=== PATIENT | female | born 1990 ===

== ENCOUNTER → 2016-06-05 | Outpatient (CLI) | payer OTHER ==
[2016-06-05 15:19] LABS: Bilirubin, Delta 0.4 mg/dL (0.0-0.2); Total Bilirubin 0.4 mg/dL (0.2-1.3); Total Protein 6.4 g/dL (6.3-8.2)
== END | disposition home or self-care (01) ==
LOC: LABWHC1 14:46
PROVIDERS: ATTEND Obstetrics & Gynecology
DX: R74.0 Nonspecific elevation of levels of transaminase and lactic acid dehydrogenase [LDH] (principal)
CPT/HCPCS: 36415; 80076

== ENCOUNTER → 2016-06-06 | Outpatient (CLI) | payer OTHER ==
--- NOTE | 2016-06-06 11:40 | US ---
EXAMINATION TYPE: US abdomen complete DATE OF EXAM: 06/06/2016 11:08 AM COMPARISON: NONE CLINICAL HISTORY: Abnormal LFT per patient; patient denies pain; order states RUQ pain; patient is 36 weeks with EDC07/02/2016. EXAM MEASUREMENTS: Liver Length: 14.7cm Gallbladder Wall: 0.2cm CBD: 0.4cm Spleen: 9.9cm Right Kidney: 11.9 x 6.9 x 4.8cm Left Kidney: 12.0 x 5.2 x 4.8cm ANATOMY: TECHNOLOGIST IMPRESSION: Exam is technically limited with uterus Pancreas: only head is seen, otherwise, obscured by bowel gas Liver: mildly heterogeneous and fatty Gallbladder: couple of hyperechoic shadowing foci in neck with minimal mobility from neck in LLD pos ition, wall thickness is wnl Evidence for sonographic Candelaria's sign: No CBD: size is wnl Spleen: Within normal limits Right Kidney: No hydronephrosis or masses seen Left Kidney: No hydronephrosis or masses seen Upper IVC: Within normal limits Abd Aorta: upper is wnl, lower is not well seen due to IMPRESSION: Cholelithiasis. Normal Values: Liver Length: < 16cm wnl, 17-18cm upper limits, >18cm enlarged Spleen Length = < 13cm Renal Length = 9 - 12cm GB Wall: < 0.3cm CBD: < 0.6cm or < 1.0cm post cholecystectomy
== END | disposition home or self-care (01) ==
LOC: RADUSWWP 05-10 09:54
PROVIDERS: ATTEND Obstetrics & Gynecology
DX: K80.20 Calculus of gallbladder without cholecystitis without obstruction (principal)
CPT/HCPCS: 76700

== ENCOUNTER → 2016-06-11 | Outpatient (CLI) | payer OTHER ==
[2016-06-11 08:07] LABS: INR 0.9 (<1.1); Ionized Calcium 5.4 mg/dL (4.5-5.3); Partial Thromboplastin Time 23.8 sec (22.0-30.0); Prothrombin Time 9.4 sec (9.0-12.0)
[2016-06-11 08:23] LABS: Bilirubin, Delta 0.4 mg/dL (0.0-0.2); Phosphorous 4.1 mg/dL (2.5-4.5); Total Bilirubin 0.5 mg/dL (0.2-1.3); Total Protein 6.4 g/dL (6.3-8.2)
[2016-06-14 18:05] LABS: Bile Acids, Total 3.6 umol/L (< 10.1)
== END | disposition home or self-care (01) ==
LOC: LABWHC1 07:16
PROVIDERS: ATTEND Obstetrics & Gynecology Maternal & Fetal Medicine
DX: R74.0 Nonspecific elevation of levels of transaminase and lactic acid dehydrogenase [LDH] (principal); Z34.90 Encounter for supervision of normal pregnancy, unspecified, unspecified trimester
CPT/HCPCS: 36415; 80076; 82239; 82248; 82330; 82977; 84080; 84100; 85610; 85730

== ENCOUNTER 2016-06-14 05:40 | Inpatient (IN) | payer OTHER ==
[2016-06-14] MEDS ORDERED: TERBUTALINE 1 MG/ML VIAL SQ PRN (05:54)
[2016-06-14] MEDS ORDERED: CARBOPROST TROMETHAMINE 250 MCG/ML 1 ML AMP IM PRN (05:54)
[2016-06-14] MEDS ORDERED: METHYLERGONOVINE 0.2 MG/ML 1 ML AMP IM PRN (05:54)
[2016-06-14] MEDS ORDERED: LIDOCAINE 1% (PF) 10 MG/ML (30 ML SDV) SQ PRN (05:54)
[2016-06-14] MEDS ORDERED: OXYTOCIN 10 UNIT/ML 1 ML VIAL IM PRN (05:54)
[2016-06-14] MEDS ORDERED: OXYTOCIN 30 UNITS/500 ML NS 30 UNIT in SALINE 1 500ML.BAG IV SCH (05:54)
[2016-06-14 06:02] VITALS: BMI 37.8
--- NOTE | 2016-06-14 06:02 | P.HPOB ---
History of Present Illness H&P Date: 06/14/16 Chief Complaint: Induction of labor secondary to severe liver enzyme elevation This patient is a pleasant 25-year-old 2 para 1 female estimated date of confinement 07/02/2016 estimated gestational age 37-1/2 weeks who presents for delivery secondary to severe liver enzyme elevation of unknown etiology. Patient developed is approximately 4 weeks ago and has been followed by myself and maternal- medicine. Ultrasound of the liver has shown some gallstones however she has no evidence of cholelithiasis otherwise her alkaline phosphatase in the last week or 2 has been over [address] Candelaria she states that the patient is at increased risk, slightly, of stillborn. Patient I have discussed options including close surveillance versus delivery and she is requesting delivery at this time. Based on her medical condition I believe this is appropriate and indicated. care has also been complicated by gestational diabetes which has been followed by maternal medicine as well. Review of Systems Constitutional: Denies chills, Denies fever Ears, nose, mouth and throat: Denies headache, Denies sore throat Cardiovascular: Denies chest pain, Denies shortness of breath Respiratory: Denies cough Gastrointestinal: Reports heartburn Genitourinary: Reports Menstruation: Reports amenorrhea Musculoskeletal: Denies myalgias Integumentary: Denies pruritus, Denies rash Neurological: Denies numbness, Denies weakness Psychiatric: Denies anxiety, Denies depression Endocrine: Denies fatigue, Denies weight change Past Medical History Additional Past Medical History / Comment(s): Elevated liver enzymes. History of Any Multi-Drug Resistant Organisms: None Reported Past Surgical History: No Surgical Hx Reported Past Anesthesia/Blood Transfusion Reactions: No Reported Reaction Past Psychological History: No Psychological Hx Reported Smoking Status: Never smoker Past Alcohol Use History: None Reported Past Drug Use History: None Reported Medications and Allergies Home Medications Medication Instructions Recorded Confirmed Type Pnv with Ca,No.72/Iron/FA 1.25 tab PO BID 05/20/16 06/14/16 History [ Plus Tablet] glyBURIDE [Glyburide] 1 tab PO DAILY 05/20/16 06/14/16 History Allergies Allergy/AdvReac Type Severity Reaction Status Date / Time No Known Allergies Allergy Verified 06/14/16 05:53 Exam - Vital Signs Vital signs: Intake and Output 06/13/16 06/13/16 06/14/16 14:59 22:59 06:59 Other: Weight 90.718 kg Patient Weight 06/14/16 06:59 Weight 90.718 kg - OBG Physical Exam Abdomen: bowel sounds normal, no diffuse tenderness, no bruit present, no guarding noted, no hepatomegaly, no splenomegaly, no mass Vulva: both: normal Cervix: Cervix is 1 cm dilated -2 station vertex. Uterus: enlarged (Fundal height is consistent with a term .) Results Most recent ultrasound at [facility] shows baby approximately 6-1/2 pounds. Alkaline phosphatase on Saturday was greater than 1000. She also has mild elevation of her transaminase. Assessment and Plan (1) Elevated liver function tests Narrative/Plan: This is a pleasant 25-year-old 2 para 1 female 30 7/2 weeks gestation with significant liver enzyme elevations in increased risk of IUFD. Patient is at term and presents for induction of labor at this time. Status: Acute (2) Gestational diabetes mellitus Status: Acute
[2016-06-14] MEDS: LACTATED RINGERS 1,000 ML IV SCH ×4 (06:04→21:36)
[2016-06-14 06:10] LABS: Basophils # (A) 0.1 k/uL (0-0.2); Basophils % (A) 1 %; CH 26.3; CHCM 32.6; Eosinophils # (A) 0.1 k/uL (0-0.7); Eosinophils % (A) 1 %; HCT 38.3 % (34.0-46.0); HDW 2.75; HGB 12.3 gm/dL (11.4-16.0); Luc # (Auto) 0.21; Luc % (Auto) 3; Lymphocytes # (A) 2.3 k/uL (1.0-4.8); Lymphocytes % (A) 28 %; MCH 26.2 pg (25.0-35.0); MCHC 32.2 g/dL (31.0-37.0); MCV 81.2 fL (80.0-100.0); Mean Platelet Volume 7.5; Monocytes # (A) 0.4 k/uL (0-1.0); Monocytes % (A) 5 %; Neutrophils # (A) 5.3 k/uL (1.3-7.7); Neutrophils % (A) 63 %; RBC 4.72 m/uL (3.80-5.40); RDW 13.8 % (11.5-15.5); WBC 8.3 k/uL (3.8-10.6); WBC (Perox) 8.73
[2016-06-14 06:23] LABS: Bilirubin, Delta 0.3 mg/dL (0.0-0.2); Total Bilirubin 0.4 mg/dL (0.2-1.3); Total Protein 6.2 g/dL (6.3-8.2)
[2016-06-14 06:24] LABS: Glucose,Whole Blood 83 mg/dL (75-99)
[2016-06-14 07:37] LABS: Glucose,Whole Blood 70 mg/dL (75-99)
[2016-06-14 08:34] LABS: Glucose,Whole Blood 72 mg/dL (75-99)
[2016-06-14 09:35] LABS: Glucose,Whole Blood 71 mg/dL (75-99)
[2016-06-14 10:23] LABS: Glucose,Whole Blood 77 mg/dL (75-99)
[2016-06-14] MEDS ORDERED: SODIUM CHLORIDE 0.9% 100 ML BAG ONE ×2 (10:40→19:55)
[2016-06-14] MEDS ORDERED: BUPIVACAINE (PF) 0.25% 30 ML VIAL ONE ×2 (10:40→19:55)
[2016-06-14] MEDS ORDERED: fentaNYL (PF) 50 MCG/ML 5 ML AMP ONE ×2 (10:40→19:55)
[2016-06-14 11:35] LABS: Glucose,Whole Blood 71 mg/dL (75-99)
[2016-06-14 12:27] LABS: Glucose,Whole Blood 67 mg/dL (75-99)
[2016-06-14 12:27] LABS: Glucose,Whole Blood 65 mg/dL (75-99)
[2016-06-14 12:31] LABS: Hemoglobin A1C 5.6 % (4.2-6.1)
[2016-06-14 13:45] LABS: Glucose,Whole Blood 65 mg/dL (75-99)
[2016-06-14 14:42] LABS: Glucose,Whole Blood 63 mg/dL (75-99)
[2016-06-14 15:34] LABS: Glucose,Whole Blood 60 mg/dL (75-99)
[2016-06-14 16:29] LABS: Glucose,Whole Blood 62 mg/dL (75-99)
[2016-06-14 17:34] LABS: Glucose,Whole Blood 68 mg/dL (75-99)
[2016-06-14 18:31] LABS: Glucose,Whole Blood 68 mg/dL (75-99)
[2016-06-14] MEDS ORDERED: AMPICILLIN 2,000 MG in SODIUM CHLORIDE 0.9% 100 ML IVPB STA (18:51)
[2016-06-14] MEDS ORDERED: CITRIC ACID-SODIUM CITRATE 15 ML CUP PO ONE (19:44)
[2016-06-14] MEDS ORDERED: ceFAZolin 2 GM in SODIUM CHLORIDE 0.9% 100 ML IVPB ONE (19:44)
[2016-06-14] MEDS ORDERED: OXYTOCIN 10 UNIT/ML 1 ML VIAL IM ONE (19:55)
[2016-06-14] MEDS ORDERED: HYDROmorphone (PF) 1 MG/ML ONE (19:55)
[2016-06-14] MEDS ORDERED: KETOROLAC 30 MG/ML 1 ML VIAL ONE (19:55)
[2016-06-14] MEDS ORDERED: ONDANSETRON 4 MG/2 ML VIAL ONE (19:55)
[2016-06-14] MEDS ORDERED: PHENYLEPHRINE-0.9% NACL SYG 1 MG/10 ML SYRINGE ONE (19:55)
[2016-06-14] MEDS ORDERED: SIMETHICONE 80 MG CHEWABLE PO PRN (20:49)
[2016-06-14] MEDS ORDERED: ZOLPIDEM 5 MG TAB PO PRN (20:49)
[2016-06-14] MEDS ORDERED: diphenhydrAMINE 25 MG CAP PO PRN (20:49)
[2016-06-14] MEDS ORDERED: METOCLOPRAMIDE 5 MG/ML 2 ML VIAL IVP PRN (20:49)
[2016-06-14] MEDS ORDERED: diphenhydrAMINE 50 MG/ML 1 ML VIAL IVP PRN (20:49)
[2016-06-14] MEDS ORDERED: NALOXONE 0.4 MG/ML 1 ML VIAL IV PRN (20:57)
[2016-06-14] MEDS ORDERED: HYDROmorphone PCA 5 MG/25 ML SYRINGE IV PRN (20:57)
--- NOTE | 2016-06-14 21:05 | P.OP ---
Date of Procedure: 06/14/16 Preoperative Diagnosis: #1: 37-3/7 week intrauterine . #2: Gestational diabetes. #3: Severe elevated liver enzymes. #4: Failure to progress in labor Postoperative Diagnosis: Same Procedure(s) Performed: Primary low transverse section Anesthesia: epidural Surgeon: Eduard Hahn Manager [employer] #1: Paty Love Estimated Blood Loss (ml): 800 Pathology: other (Placenta) Condition: stable Disposition: floor Indications for Procedure: Please see dictated H&P for intimate details of this patient's admission. Brief summary this is a pleasant 25-year-old 2 para 1 female 37-3/7 weeks gestation who is admitted for induction of labor secondary to liver enzyme abnormalities. Patient is admitted she is 1-2 cm dilated and has artificial rupture membranes for clear fluid. Patient's labor progresses until she gets to about 8 cm dilated and the cervix falls up and the head does not come down past -1 station. We began have some maternal tachycardia and low- grade temperature at this time and recommended proceed with section for delivery. Patient does understand the surgery and risks including risks of infection, bleeding, possible injury to bowel, bladder, vessels, and other organs. Patient understands risk of DVT and pulmonary embolism. All the patient's questions are answered and a written consent is obtained. Operative Findings: This is a vigorous viable female infant Apgars were 9 and 9 delivery time is 2016 hrs. Infant has spontaneous respirations and good cry and grossly appears normal. Description of Procedure: This patient has a Rosas catheter placed to straight drain. She is subsequently taken to the operating room where her epidural is dosed up for sufficient level of surgery. With an adequate level of anesthesia she has abdominal prep and drape. Scalpels and taken Pfannenstiel skin incision is then made. A second scalpel is taken down the fascia the fascia scored with a knife. Fascial incision extended bilaterally using the Haq scissors. Fascia is dissected off the rectus muscles the rectus muscles are and identified the peritoneum was identified and entered sharply. The peritoneal incision extended superior and inferior without difficulty. Bladder blade is then placed. Bladder peritoneum was taken off the lower uterine segment sharply. Scalpels and taken low transverse uterine incision is then made. Using a hemostat into the uterine cavity bluntly. There is loss of clear fluid. This incision extended bluntly. 's head is then guided through the incision with fundal pressure. is found to be in the hospital posterior presentation. Transverse to the right. With this done we then bulb suction the baby's mouth and naris is no evidence of nuchal cord. Then delivery anterior posterior shoulder and rest this 's body. This is a vigorous viable female infant Apgars are 9 and 9 delivery time is 2016 hrs. After delivery of the the umbilical cord is doubly clamped and cut it appears to be trivascular. Placenta is then manually extracted intact. Uterus is then externalized. Uterine incision is then closed using 0 Vicryl running locked fashion 2 layers. Excellent hemostasis is noted. The bladder peritoneum was then closed using a 3-0 Vicryl in the usual fashion. Again good hemostasis is noted. With this done excess fluid is removed from the pelvis. Uterus placed back into the abdomen. Final inspection shows all be hemostatic. Peritoneum was identified and closed using 0 Vicryl running fashion. Rectus muscles reapproximated in 0 Vicryl interrupted fashion. Fascia is then closed using 0 PDS. Fascial incision is intact and hemostatic. Subcutaneous tissues and closed using a 3-0 Vicryl in the usual fashion. Good hemostasis is noted. Skin is and closed using lili and a sterile dressing is then applied. All counts are correct 3. There is no complications. and mother are stable in delivery room.
[2016-06-15] MEDS: ceFAZolin 2 GM in SODIUM CHLORIDE 0.9% 100 ML IVPB SCH ×2 (00:17→08:31)
[2016-06-15] MEDS: OXYTOCIN 30 UNITS/500 ML NS 30 UNIT in SALINE 1 500ML.BAG IV SCH ×5 (00:18→19:51)
[2016-06-15] MEDS: KETOROLAC 30 MG/ML 1 ML VIAL IVP PRN ×2 (06:01→13:42)
[2016-06-15] MEDS ORDERED: Acetaminophen-Codeine 300-30mg TAB PO PRN (06:10)
[2016-06-15] MEDS ORDERED: IBUPROFEN 200 MG TAB PO PRN (06:12)
[2016-06-15] MEDS ORDERED: DIPH,PERTUS(ACELL)TETVAC-LF 0.5 ML VIAL IM ONE (06:13)
[2016-06-15] MEDS ORDERED: MEASLES-MUMPS-RUBELLA VACC/PF 12,500 UNIT/0.5 ML VIAL SQ ONE (06:13)
[2016-06-15] MEDS ORDERED: INFLUENZA VACCINE (3YR+) 60 MCG/0.5 ML SYRINGE IM ONE (06:14)
--- NOTE | 2016-06-15 06:28 | P.PNOBGPC ---
Subjective - Subjective Patient reports: Reports appetite normal, Reports voiding normally, Reports pain well controlled, Reports ambulating normally : doing well Objective - Vital Signs Latest vital signs: Vital Signs Temp Pulse Resp BP Pulse Ox 06/15/16 00:00 98.2 F 86 16 109/66 06/14/16 22:47 98.6 F 100 16 100/58 06/14/16 22:17 93 15 109/55 98 06/14/16 22:10 98 06/14/16 21:47 100 18 112/60 95 06/14/16 21:32 111 H 17 114/57 99 06/14/16 21:17 103 H 17 110/58 94 L 06/14/16 21:02 94 18 113/57 98 06/14/16 20:52 97.9 F 103 H 18 95 Intake and Output 06/14/16 06/14/16 06/15/16 14:59 22:59 06:59 Intake Total 1100 500 Balance 1100 500 Intake: IV 1100 Ampicillin 2,000 mg In 100 Sodium Chloride 0.9% 100 ml @ 100 mls/hr IVPB ONCE STA Rx#:[id number] Lactated Ringers 1,000 ml 1000 @ 125 mls/hr IV .Q8H [facility] Rx#:[id number] Oral 500 Other: Voiding Method Indwelling Catheter Indwelling Catheter - Exam Lungs: bilateral: normal Chest: Normal S1, Normal S2 Extremities: Present: normal Abdomen: Present: normal appearance, soft. Absent: distention, tenderness Incision: Present: normal, dry, intact Uterus: Present: normal, firm - Labs Labs: Abnormal Lab Results - Last 24 Hours (Table) 06/14/16 06/14/16 06/14/16 Range/Units 06:02 07:35 08:33 POC Glucose (mg/dL) 70 L 72 L (75-99) mg/dL Delta Bilirubin 0.3 H (0.0-0.2) mg/dL ALT 53 H (9-52) U/L Alkaline Phosphatase 1106 H (38-126) U/L Total Protein 6.2 L (6.3-8.2) g/dL Albumin 3.2 L (3.5-5.0) g/dL 06/14/16 06/14/16 06/14/16 Range/Units 09:33 11:34 12:22 POC Glucose (mg/dL) 71 L 71 L 65 L (75-99) mg/dL Delta Bilirubin (0.0-0.2) mg/dL ALT (9-52) U/L Alkaline Phosphatase (38-126) U/L Total Protein (6.3-8.2) g/dL Albumin (3.5-5.0) g/dL 06/14/16 06/14/16 06/14/16 Range/Units 12:25 13:43 14:29 POC Glucose (mg/dL) 67 L 65 L 63 L (75-99) mg/dL Delta Bilirubin (0.0-0.2) mg/dL ALT (9-52) U/L Alkaline Phosphatase (38-126) U/L Total Protein (6.3-8.2) g/dL Albumin (3.5-5.0) g/dL 06/14/16 06/14/16 06/14/16 Range/Units 15:32 16:27 17:33 POC Glucose (mg/dL) 60 L 62 L 68 L (75-99) mg/dL Delta Bilirubin (0.0-0.2) mg/dL ALT (9-52) U/L Alkaline Phosphatase (38-126) U/L Total Protein (6.3-8.2) g/dL Albumin (3.5-5.0) g/dL 06/14/16 Range/Units 18:30 POC Glucose (mg/dL) 68 L (75-99) mg/dL Delta Bilirubin (0.0-0.2) mg/dL ALT (9-52) U/L Alkaline Phosphatase (38-126) U/L Total Protein (6.3-8.2) g/dL Albumin (3.5-5.0) g/dL Assessment and Plan (1) Elevated liver function tests Current Visit: Yes Status: Acute Code(s): R79.89 - OTHER SPECIFIED ABNORMAL FINDINGS OF BLOOD CHEMISTRY SNOMED Code(s): 205357327 (2) Gestational diabetes mellitus Current Visit: Yes Status: Acute Code(s): O24.419 - GESTATIONAL DIABETES MELLITUS IN , UNSP CONTROL SNOMED Code(s): 47022308 (3) delivery delivered Narrative/Plan: This is postoperative day #1. Patient is resting without complaints. Vital signs are stable and she is afebrile. Incision is intact and dry. She is having excellent urine output and tolerating liquid diet. 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 Dr. Davis we will see this patient for me in the next few days and we anticipate discharge home tomorrow or Saturday. Current Visit: Yes Status: Acute Code(s): O82 - ENCOUNTER FOR DELIVERY WITHOUT INDICATION SNOMED Code(s): 501277456
[2016-06-15] MEDS: LACTATED RINGERS 1,000 ML IV SCH ×2 (07:13→09:56)
[2016-06-15 08:04] LABS: Basophils # (A) 0.1 k/uL (0-0.2); Basophils % (A) 0 %; CH 26.7; CHCM 33.1; Eosinophils % (A) 0 %; HCT 31.6 % (34.0-46.0); HDW 2.72; HGB 10.2 gm/dL (11.4-16.0); Luc # (Auto) 0.21; Luc % (Auto) 1; Lymphocytes # (A) 2.1 k/uL (1.0-4.8); Lymphocytes % (A) 14 %; MCHC 32.2 g/dL (31.0-37.0); MCV 80.9 fL (80.0-100.0); Mean Platelet Volume 8.6; Monocytes # (A) 0.8 k/uL (0-1.0); Monocytes % (A) 5 %; Neutrophils # (A) 12.3 k/uL (1.3-7.7); Neutrophils % (A) 79 %; RBC 3.91 m/uL (3.80-5.40); RDW 14.1 % (11.5-15.5); WBC 15.5 k/uL (3.8-10.6)
[2016-06-15 08:17] LABS: Bilirubin, Delta 0.4 mg/dL (0.0-0.2); Total Bilirubin 0.7 mg/dL (0.2-1.3); Total Protein 5.2 g/dL (6.3-8.2)
[2016-06-15] MEDS: SENNOSIDES-DOCUSATE SODIUM 1 EACH TAB PO SCH ×2 (16:24→19:30)
[2016-06-15] MEDS: Acetaminophen-Codeine 300-30mg TAB PO PRN (19:30)
[2016-06-15] MEDS: IBUPROFEN 600 MG TAB PO PRN (23:12)
[2016-06-16] MEDS: Acetaminophen-Codeine 300-30mg TAB PO PRN ×2 (02:55→13:28)
--- NOTE | 2016-06-16 05:00 | P.DS ---
Providers Date of admission: 06/14/16 05:40 Expected date of discharge: 06/16/16 Attending physician: Eduard Hahn Primary care physician: Stated None - Discharge Diagnosis(es) (1) delivery delivered Current Visit: Yes Status: Acute Hospital Course: Patient underwent a primary low transverse for failure to progress. She also had severely elevated liver enzymes and gestational diabetes. Her course was uncomplicated. Dr. Hahn scar see the patient in a week and recheck her liver enzymes. She denies nausea, vomiting, chest percussion was of breath or calf pain. Her incision is clean, dry, intact. Pain is well-controlled with Tylenol 3 and Motrin. Plan - Discharge Summary New Discharge Prescriptions: Acetaminophen-Codeine 300-30mg [Tylenol w/codeine #3] 1 - 2 each PO Q4HR PRN # 30 tab PRN Reason: Pain Ibuprofen [Motrin] 600 mg PO QID PRN #40 tab PRN Reason: Pain Discharge Medication List Pnv with Ca,No.72/Iron/FA [ Plus Tablet] 1.25 tab PO BID 05/20/16 [ History] Acetaminophen-Codeine 300-30mg [Tylenol w/codeine #3] 1 - 2 each PO Q4HR PRN # 30 tab 06/15/16 [Rx] Ibuprofen [Motrin] 600 mg PO QID PRN #40 tab 06/15/16 [Rx] Follow up Appointment(s)/Referral(s): Eduard Hahn MD [STAFF PHYSICIAN] - 1 Week (Please see me also on July 31 at 10:15 AM for a visit.) Patient Instructions/Handouts: (DC) Activity/Diet/Wound Care/Special Instructions: No heavy lifting or strenuous activities for 6 weeks. Please call if any fever , chills, excessive vaginal bleeding, and/or abdominal pain. No intercourse for 6 weeks. Discharge Disposition: HOME SELF-CARE
[2016-06-16] MEDS: SENNOSIDES-DOCUSATE SODIUM 1 EACH TAB PO SCH (08:49)
[2016-06-16] MEDS: IBUPROFEN 600 MG TAB PO PRN (08:50)
[2016-06-16 09:24] VITALS: BP 134/82; PULSE 112; RESP 18; TEMP 98.7
== END 2016-06-16 13:30 | disposition home or self-care (01) | DRG 765 ==
LOC: 4FBP 05:40
PROVIDERS: ADMIT Obstetrics & Gynecology; ATTEND Obstetrics & Gynecology
PROC: 10907ZC Drainage of Amniotic Fluid, Therapeutic from Products of Conception, Via Natural or Artificial Opening (ICD-10-PCS; principal; 2016-06-14 20:00)
PROC: 10D00Z1 Extraction of Products of Conception, Low, Open Approach (ICD-10-PCS; principal; 2016-06-14 20:00)
DX: O26.62 Liver and biliary tract disorders in childbirth (principal); O75.2 Pyrexia during labor, not elsewhere classified; O24.429 Gestational diabetes mellitus in childbirth, unspecified control; K80.20 Calculus of gallbladder without cholecystitis without obstruction; O62.2 Other uterine inertia; Z3A.37 37 weeks gestation of pregnancy; R00.0 Tachycardia, unspecified; O32.4XX0 Maternal care for high head at term, not applicable or unspecified; Z37.0 Single live birth
CPT/HCPCS: 36415; 80076; 82239; 82248; 82330; 82977; 83036; 84080; 84100; 85025; 85610; 85730; 88307; 90471; 90472; 90686; 90707; 90715

== ENCOUNTER → 2016-06-25 | Outpatient (CLI) | payer OTHER ==
[2016-06-25 11:01] LABS: Bilirubin, Delta 0.4 mg/dL (0.0-0.2); Total Bilirubin 0.4 mg/dL (0.2-1.3); Total Protein 7.1 g/dL (6.3-8.2)
== END | disposition home or self-care (01) ==
LOC: LABWHC1 09:53
PROVIDERS: ATTEND Obstetrics & Gynecology
DX: K75.9 Inflammatory liver disease, unspecified (principal)
CPT/HCPCS: 36415; 80076

== ENCOUNTER 2016-07-29 17:34 | Emergency (ER) | payer BC, OTHER ==
[2016-07-29 17:42] VITALS: BP 136/78; PULSE 83; RESP 17; TEMP 97.6
[2016-07-29] MEDS ORDERED: SODIUM CHLORIDE 0.9% 500 ML IV STA (17:57)
[2016-07-29 18:43] LABS: Basophils % (A) 0 %; CH 25.9; CHCM 31.7; Eosinophils # (A) 0.1 k/uL (0-0.7); Eosinophils % (A) 1 %; HCT 37.6 % (34.0-46.0); HDW 2.26; HGB 11.8 gm/dL (11.4-16.0); Luc # (Auto) 0.17; Luc % (Auto) 2; Lymphocytes # (A) 1.5 k/uL (1.0-4.8); Lymphocytes % (A) 18 %; MCH 25.8 pg (25.0-35.0); MCHC 31.5 g/dL (31.0-37.0); MCV 81.8 fL (80.0-100.0); Mean Platelet Volume 6.7; Monocytes # (A) 0.4 k/uL (0-1.0); Monocytes % (A) 5 %; Neutrophils # (A) 6.1 k/uL (1.3-7.7); Neutrophils % (A) 74 %; RBC 4.59 m/uL (3.80-5.40); RDW 15.2 % (11.5-15.5); WBC 8.3 k/uL (3.8-10.6); WBC (Perox) 8.72
[2016-07-29 18:56] LABS: Amorphous Sediment,Urine Occasional /hpf; Appearance,Urine Cloudy (Clear); Bacteria,Urine Many /hpf; Bilirubin,Urine 1+ (Negative); Glucose,Urine (UA) Negative (Negative); Ketones,Urine Negative (Negative); Leukocyte Esterase,Urine Moderate (Negative); Mucus,Urine Occasional /hpf; Nitrite,Urine Negative (Negative); Protein,Urine Trace (Negative); RBC,Urine <1 /hpf (0-5); Specific Gravity,Urine 1.021 (1.001-1.035); Squamous Epithelial Cell,Urine 1 /hpf (0-4); UA Billing (MACRO vs. MICRO) MICRO; WBC,Urine 21 /hpf (0-5)
[2016-07-29 18:58] LABS: ALT 344 U/L (9-52); AST 614 U/L (14-36); Alkaline Phosphatase 158 U/L (38-126); Amylase 59 U/L (30-110); Anion Gap 10 mmol/L; Blood Urea Nitrogen 11 mg/dL (7-17); Calcium 9.8 mg/dL (8.4-10.2); Carbon Dioxide 26 mmol/L (22-30); Chloride 106 mmol/L (98-107); Glucose 92 mg/dL (74-99); Non-African American GFR(MDRD) >60 (>60 ml/min/1.73 sqM); Potassium 4.3 mmol/L (3.5-5.1); Sodium 142 mmol/L (137-145); Total Protein 7.8 g/dL (6.3-8.2)
--- NOTE | 2016-07-29 19:26 | XR ---
EXAMINATION TYPE: XR thoracic spine 2V DATE OF EXAM: 07/29/2016 7:14 PM CLINICAL HISTORY: pain TECHNIQUE: Frontal, lateral, and swimmer's view of thoracic spine are obtained. COMPARISON: None. FINDINGS: Thoracic spine show satisfactory alignment without evidence of acute fracture or dislocatio n. Vertebral body heights are preserved. Disc spaces are well preserved. Visualized ribs are unrem arkable. IMPRESSION: No acute fracture or dislocation is seen in the thoracic spine. ICD 10 NO FRACTURE, INIT IAL EVALUATION
--- NOTE | 2016-07-29 19:27 | XR ---
EXAMINATION TYPE: XR chest 1V DATE OF EXAM: 07/29/2016 7:14 PM COMPARISON: NONE HISTORY: Chest pain TECHNIQUE: Single frontal view of the chest is obtained. FINDINGS: There is no focal air space opacity, pleural effusion, or pneumothorax seen. The cardiac silhouette size is within normal limits. The osseous structures are intact. IMPRESSION: 1. No acute process.
[2016-07-29] MEDS ORDERED: ONDANSETRON 4 MG/2 ML VIAL IVP STA (19:49)
[2016-07-29] MEDS ORDERED: HYDROmorphone 1 MG/ML 1 ML SYRINGE IVP STA (19:49)
--- NOTE | 2016-07-29 19:51 | ED ---
General Adult HPI - General Source: patient, RN notes reviewed Mode of arrival: ambulatory Limitations: no limitations <Dejuan Chung - Last Filed: 07/29/16 19:49> <Saul Lambert - Last Filed: 07/29/16 20:47> - General Chief complaint: Back Pain/Injury Stated complaint: back pain Time Seen by Provider: 07/29/16 17:43 - History of Present Illness Initial comments: 26-year-old female presents emergency Department chief complaint of back pain, abdominal pain. Patient states she's been having mid upper back pain, shoulder pain over the last month states is getting worse last few days. Patient states she also started having reported abdominal pain. Patient states that she states nausea vomiting or diarrhea. She states her back is worse with movement which she denies any trauma. Patient denies any shortness of breath, cough or cold like symptoms. Patient did state that she had a baby approximately one month ago. Patient states that during her her liver functions were elevated though they stated it was just benign hepatitis and her liver functions are actually better after delivering her child. Patient denies any dysuria hematuria. Denies any chance emergency. (Dejuan Chung) - Related Data Previous Rx's Medication Instructions Recorded Ibuprofen [Motrin] 600 mg PO QID PRN #40 tab 06/15/16 Ondansetron Odt [Zofran Odt] 4 mg PO Q12HR PRN #10 tab 07/29/16 Allergies Allergy/AdvReac Type Severity Reaction Status Date / Time No Known Allergies Allergy Verified 07/29/16 18:05 Review of Systems ROS Other: All systems not noted in ROS Statement are negative. <Dejuan Chung - Last Filed: 07/29/16 19:49> ROS Other: All systems not noted in ROS Statement are negative. <Saul Lambert - Last Filed: 07/29/16 20:47> ROS Statement: Those systems with pertinent positive or pertinent negative responses have been documented in the HPI. Past Medical History Past Medical History: No Reported History Additional Past Medical History / Comment(s): Elevated liver enzymes. History of Any Multi-Drug Resistant Organisms: None Reported Past Surgical History: No Surgical Hx Reported Additional Past Surgical History / Comment(s): [place] tooth extraction Past Anesthesia/Blood Transfusion Reactions: No Reported Reaction Past Psychological History: No Psychological Hx Reported Smoking Status: Never smoker Past Alcohol Use History: None Reported Past Drug Use History: None Reported - Past Family History Mother Family Medical History: Cancer, Diabetes Mellitus <Dejuan Chung - Last Filed: 07/29/16 19:49> General Exam Limitations: no limitations General appearance: alert, in no apparent distress Head exam: Present: atraumatic, normocephalic, normal inspection Respiratory exam: Present: normal lung sounds bilaterally. Absent: respiratory distress, wheezes, rales, rhonchi, stridor Cardiovascular Exam: Present: regular rate, normal rhythm, normal heart sounds. Absent: systolic murmur, diastolic murmur, rubs, gallop, clicks GI/Abdominal exam: Present: soft, tenderness (Moderate right upper quadrant tenderness), normal bowel sounds. Absent: distended, guarding, rebound, rigid Back exam: Present: tenderness (Mild tenderness in thoracic area). Absent: CVA tenderness (R), CVA tenderness (L), paraspinal tenderness, vertebral tenderness Neurological exam: Present: alert Skin exam: Present: warm, dry, intact, normal color. Absent: rash <Dejuan Chung - Last Filed: 07/29/16 19:49> Medical Decision Making - Lab Data Result diagrams: 07/29/16 18:25 07/29/16 18:25 <Dejuan Chung - Last Filed: 07/29/16 19:49> - Lab Data Result diagrams: 07/29/16 18:25 07/29/16 18:25 <Saul Lambert - Last Filed: 07/29/16 20:47> - Medical Decision Making Patient was signed out to me for follow-up with the ultrasound. I reviewed the patient's vital signs, laboratory studies, previous imaging. Discussed the patient's symptoms. Patient states that she developed severe right upper quadrant abdominal pain that wraps around to her back after eating a fatty/ fried meal yesterday. She has a known history of elevated alk phos which is been evaluated in the past with an unremarkable workup. Her history is consistent with a biliary colic. Reviewed ultrasound findings which were consistent with uncomplicated cholelithiasis. Had a discussion with the patient that she may have had a temporary blocked gallstone which passed through the common bile duct which would cause elevated liver enzymes and her elevated alk phos. She denies any alcohol use. No history of hepatitis. She denies any spotty vision, severe headaches or any changes in urination to suggest HELPP syndrome. Trace protein in urine. WBC in urine but denies any urinary symptoms. Recommended that the patient follow-up with a surgeon for evaluation. We'll discharge the patient home with Zofran. We'll have a bland diet until her symptoms resolve. Strongly suggested that she avoid any fatty foods, greasy foods, acidic foods. Discussed signs and symptoms on when to return to the emergency department for further evaluation. Patient voiced understanding and is comfortable with discharge home. (Saul Lambert) - Lab Data Lab Results 07/29/16 07/29/16 07/29/16 Range/Units 18:25 18:25 18:25 WBC 8.3 (3.8-10.6) k/uL RBC 4.59 (3.80-5.40) m/uL Hgb 11.8 (11.4-16.0) gm/dL Hct 37.6 (34.0-46.0) % MCV 81.8 (80.0-100.0) fL MCH 25.8 (25.0-35.0) pg MCHC 31.5 (31.0-37.0) g/dL RDW 15.2 (11.5-15.5) % Plt Count 414 (150-450) k/uL Neutrophils % 74 % Lymphocytes % 18 % Monocytes % 5 % Eosinophils % 1 % Basophils % 0 % Neutrophils # 6.1 (1.3-7.7) k/uL Lymphocytes # 1.5 (1.0-4.8) k/uL Monocytes # 0.4 (0-1.0) k/uL Eosinophils # 0.1 (0-0.7) k/uL Basophils # 0.0 (0-0.2) k/uL Sodium 142 (137-145) mmol/L Potassium 4.3 (3.5-5.1) mmol/L Chloride 106 (98-107) mmol/L Carbon Dioxide 26 (22-30) mmol/L Anion Gap 10 mmol/L BUN 11 (7-17) mg/dL Creatinine 0.71 (0.52-1.04) mg/dL Est GFR (MDRD) Af Amer >60 (>60 ml/min/1.73 sqM) Est GFR (MDRD) Non-Af >60 (>60 ml/min/1.73 sqM) Glucose 92 (74-99) mg/dL Calcium 9.8 (8.4-10.2) mg/dL Total Bilirubin 1.0 (0.2-1.3) mg/dL AST 614 H (14-36) U/L ALT 344 H (9-52) U/L Alkaline Phosphatase 158 H (38-126) U/L Total Protein 7.8 (6.3-8.2) g/dL Albumin 4.1 (3.5-5.0) g/dL Amylase 59 (30-110) U/L Lipase 298 (23-300) U/L Urine Color Urine Appearance (Clear) Urine pH (5.0-8.0) Ur Specific [place] (1.001-1.035) Urine Protein (Negative) Urine Glucose (UA) (Negative) Urine Ketones (Negative) Urine Blood (Negative) Urine Nitrate (Negative) Urine Bilirubin (Negative) Urine Urobilinogen (<2.0) mg/dL Ur Leukocyte Esterase (Negative) Urine RBC (0-5) /hpf Urine WBC (0-5) /hpf Ur Squamous Epith Cells (0-4) /hpf Amorphous Sediment (None) /hpf Urine Bacteria (None) /hpf Urine Mucus (None) /hpf Urine HCG, Qual Not Detected (Not Detectd) 07/29/16 Range/Units 18:25 WBC (3.8-10.6) k/uL RBC (3.80-5.40) m/uL Hgb (11.4-16.0) gm/dL Hct (34.0-46.0) % MCV (80.0-100.0) fL MCH (25.0-35.0) pg MCHC (31.0-37.0) g/dL RDW (11.5-15.5) % Plt Count (150-450) k/uL Neutrophils % % Lymphocytes % % Monocytes % % Eosinophils % % Basophils % % Neutrophils # (1.3-7.7) k/uL Lymphocytes # (1.0-4.8) k/uL Monocytes # (0-1.0) k/uL Eosinophils # (0-0.7) k/uL Basophils # (0-0.2) k/uL Sodium (137-145) mmol/L Potassium (3.5-5.1) mmol/L Chloride (98-107) mmol/L Carbon Dioxide (22-30) mmol/L Anion Gap mmol/L BUN (7-17) mg/dL Creatinine (0.52-1.04) mg/dL Est GFR (MDRD) Af Amer (>60 ml/min/1.73 sqM) Est GFR (MDRD) Non-Af (>60 ml/min/1.73 sqM) Glucose (74-99) mg/dL Calcium (8.4-10.2) mg/dL Total Bilirubin (0.2-1.3) mg/dL AST (14-36) U/L ALT (9-52) U/L Alkaline Phosphatase (38-126) U/L Total Protein (6.3-8.2) g/dL Albumin (3.5-5.0) g/dL Amylase (30-110) U/L Lipase (23-300) U/L Urine Color Yellow Urine Appearance Cloudy H (Clear) Urine pH 6.0 (5.0-8.0) Ur Specific [place] 1.021 (1.001-1.035) Urine Protein Trace H (Negative) Urine Glucose (UA) Negative (Negative) Urine Ketones Negative (Negative) Urine Blood Small H (Negative) Urine Nitrate Negative (Negative) Urine Bilirubin 1+ H (Negative) Urine Urobilinogen 12.0 (<2.0) mg/dL Ur Leukocyte Esterase Moderate H (Negative) Urine RBC <1 (0-5) /hpf Urine WBC 21 H (0-5) /hpf Ur Squamous Epith Cells 1 (0-4) /hpf Amorphous Sediment Occasional H (None) /hpf Urine Bacteria Many H (None) /hpf Urine Mucus Occasional H (None) /hpf Urine HCG, Qual (Not Detectd) Disposition <Dejuan Chung - Last Filed: 07/29/16 19:49> <Saul Lambert - Last Filed: 07/29/16 20:47> Clinical Impression: Cholelithiasis, Transaminitis, Elevated alkaline phosphatase level, Abdominal pain Disposition: HOME SELF-CARE Condition: Good Instructions: Gallstones (ED), Abdominal Pain (ED) Prescriptions: Ondansetron Odt [Zofran Odt] 4 mg PO Q12HR PRN #10 tab PRN Reason: Nausea And Vomiting Referrals: Mariia Cruz MD [Primary Care Provider] - 1-2 days Kev Rodriguez MD [Medical Doctor] - 1-2 days
--- NOTE | 2016-07-29 20:34 | US ---
EXAMINATION TYPE: US abdomen limited DATE OF EXAM: 07/29/2016 8:15 PM COMPARISON: on PACS CLINICAL HISTORY: Pain. RUQ pain, NPO EXAM MEASUREMENTS: Liver Length: 16.8 cm Gallbladder Wall: 0.2 cm CBD: 0.6 cm CHD: 0.4 cm Right Kidney: 10.3 x 6.0 x 4.2 cm Findings: Pancreas: tail not well seen due to overlying bowel gas. Main pancreatic duct= 1.7 mm Liver: wnl Gallbladder: mobile echogenic foci with shadowing Evidence for sonographic Candelaria's sign: neg CBD: wnl CHD: wnl Right Kidney: wnl IMPRESSION: Uncomplicated cholelithiasis.
== END 2016-07-29 21:18 | disposition home or self-care (01) ==
LOC: EC 17:34
DX: K80.20 Calculus of gallbladder without cholecystitis without obstruction (principal); R74.0 Nonspecific elevation of levels of transaminase and lactic acid dehydrogenase [LDH]; R74.8 Abnormal levels of other serum enzymes; Z79.899 Other long term (current) drug therapy
CPT/HCPCS: 36415; 80053; 82150; 83690; 85025; 81001; 81025; 72070; 71010; 76705; 99284; 96374; 96375; 96361; J2405; J1170

== ENCOUNTER 2016-07-31 19:22 | Inpatient (IN) | payer BC, OTHER ==
[2016-07-31] MEDS ORDERED: ONDANSETRON 4 MG/2 ML VIAL IVP STA (20:00)
[2016-07-31] MEDS ORDERED: ACETAMINOPHEN IV (For NPO) 1,000 MG in EMPTY BAG 1 BAG IVPB ONE (20:00)
[2016-07-31] MEDS ORDERED: SODIUM CHLORIDE 0.9% 1,000 ML IV STA (20:00)
[2016-07-31] MEDS ORDERED: HYDROmorphone 1 MG/ML 1 ML SYRINGE IVP STA (20:13)
--- NOTE | 2016-07-31 20:13 | ED ---
Abdominal Pain HPI - General Chief Complaint: Abdominal Pain Stated Complaint: Abd/Side/Back Pain Time Seen by Provider: 07/31/16 19:58 Source: patient, RN notes reviewed Mode of arrival: ambulatory Limitations: no limitations - History of Present Illness Initial Comments: 26-year-old female presents to the emergency Department chief complaint of right upper quadrant abdominal pain. Patient states that she was seen here a few days ago she was told that she had a gallbladder attack. Patient states she went home she started to have nausea vomiting started at increasing pain. Patient states now has pain when she takes a deep breath. Patient states that she hasn't had any cough cold runny nose with this. Patient does admit to a history of gallstones in the past. Patient states is her liver enzymes are also increased. Patient states that she just keeps getting worse reevaluated. Patient states that she is not currently having any other symptoms at this time. Patient states there is radiation to the back.Patient denies any recent shortness of breath, chest pain, back pain, numbness or tingling, dysuria or hematuria, constipation or diarrhea, headaches or visual changes, or any other current symptoms. - Related Data Home Medications Medication Instructions Recorded Confirmed Acetaminophen-Codeine 300-30mg 2 tab PO Q6H PRN 07/31/16 07/31/16 [Tylenol #3] Allergies Allergy/AdvReac Type Severity Reaction Status Date / Time No Known Allergies Allergy Verified 07/31/16 20:10 Review of Systems ROS Statement: Those systems with pertinent positive or pertinent negative responses have been documented in the HPI. ROS Other: All systems not noted in ROS Statement are negative. Past Medical History Past Medical History: No Reported History Additional Past Medical History / Comment(s): Elevated liver enzymes, chol History of Any Multi-Drug Resistant Organisms: None Reported Past Surgical History: No Surgical Hx Reported Additional Past Surgical History / Comment(s): [place] tooth extraction Past Anesthesia/Blood Transfusion Reactions: No Reported Reaction Past Psychological History: No Psychological Hx Reported Smoking Status: Never smoker Past Alcohol Use History: None Reported Past Drug Use History: None Reported - Past Family History Mother Family Medical History: Cancer, Diabetes Mellitus General Exam - General Exam Comments Initial Comments: General: The patient is awake and alert, in no distress, and does not appear acutely ill, jaundice. Eye: Pupils are equal, round and reactive to light, extra-ocular movements are intact; there is normal conjunctiva bilaterally. No signs of icterus. Ears, nose, mouth and throat: There are moist mucous membranes. Neck: The neck is supple, there is no tenderness. Cardiovascular: There is a regular rate and rhythm. No murmur, rub or gallop is appreciated. Respiratory: Lungs are clear to auscultation, respirations are non-labored, breath sounds are equal. No wheezes, stridor, rales, or rhonchi. Gastrointestinal: Soft, non-distended, or percussion tenderness of the abdomen without masses or organomegaly noted. There is no rebound or guarding present. No CVA tenderness. Bowel sounds are unremarkable. Back: There is no tenderness to palpation in the midline. There is no obvious deformity. No rashes noted. Musculoskeletal: Normal ROM, no tenderness, There is no pedal edema. There is no calf tenderness or swelling. Sensation intact. Pulses equal bilaterally 2+. Neurological: CN II-XII intact, There are no obvious motor or sensory deficits. Coordination appears grossly intact. Speech is normal. Skin: Skin is warm and dry and no rashes or lesions are noted. Psychiatric: Cooperative, appropriate mood & affect, normal judgment. Limitations: no limitations Course Vital Signs 07/31/16 07/31/16 07/31/16 19:39 22:16 22:31 Temperature 100.3 F H Pulse Rate 130 H 89 Respiratory 18 18 16 Rate Blood Pressure 131/96 131/75 O2 Sat by Pulse 98 96 Oximetry Medical Decision Making - Medical Decision Making 26-year-old female presents emergency Department chief complaint abdominal pain. This time patient does appear to have acute pancreatitis as well as elevated liver enzymes and an elevated bilirubin which is new from previous labs on 07/29. At this time the suspicion is that the Silvana lithiasis has caused pancreatitis as well as elevated bilirubin. At this time admitting provider who is Dr. Crespo was contacted regarding the case we will admit patient will continue pain medication and fluids. We will also consult surgery regarding the case and Dr. Carr was contacted as well regarding the case. - Lab Data Result diagrams: 07/31/16 20:55 07/31/16 20:55 Lab Results 07/31/16 07/31/16 07/31/16 Range/Units 20:55 20:55 20:55 WBC 8.9 (3.8-10.6) k/uL RBC 4.69 (3.80-5.40) m/uL Hgb 12.2 (11.4-16.0) gm/dL Hct 38.2 (34.0-46.0) % MCV 81.5 (80.0-100.0) fL MCH 26.1 (25.0-35.0) pg MCHC 32.1 (31.0-37.0) g/dL RDW 15.4 (11.5-15.5) % Plt Count 459 H (150-450) k/uL Neutrophils % 82 % Lymphocytes % 13 % Monocytes % 4 % Eosinophils % 0 % Basophils % 0 % Neutrophils # 7.3 (1.3-7.7) k/uL Lymphocytes # 1.1 (1.0-4.8) k/uL Monocytes # 0.4 (0-1.0) k/uL Eosinophils # 0.0 (0-0.7) k/uL Basophils # 0.0 (0-0.2) k/uL PT (9.0-12.0) sec INR (<1.1) APTT (22.0-30.0) sec Sodium 144 (137-145) mmol/L Potassium 3.8 (3.5-5.1) mmol/L Chloride 108 H (98-107) mmol/L Carbon Dioxide 23 (22-30) mmol/L Anion Gap 13 mmol/L BUN 7 (7-17) mg/dL Creatinine 0.70 (0.52-1.04) mg/dL Est GFR (MDRD) Af Amer >60 (>60 ml/min/1.73 sqM) Est GFR (MDRD) Non-Af >60 (>60 ml/min/1.73 sqM) Glucose 119 H (74-99) mg/dL Plasma Lactic Acid David (0.7-2.0) mmol/L Calcium 9.7 (8.4-10.2) mg/dL Total Bilirubin 3.8 H (0.2-1.3) mg/dL AST 576 H (14-36) U/L ALT 991 H (9-52) U/L Alkaline Phosphatase 323 H (38-126) U/L Total Protein 7.7 (6.3-8.2) g/dL Albumin 4.2 (3.5-5.0) g/dL Amylase 2072 H* (30-110) U/L Lipase >48428 H (23-300) U/L Blood Type A Positive Blood Type Recheck No Antibody Screen NEGATIVE Spec Expiration Date 08/03/2016 - 235407/31/16 07/31/16 Range/Units 20:55 20:55 WBC (3.8-10.6) k/uL RBC (3.80-5.40) m/uL Hgb (11.4-16.0) gm/dL Hct (34.0-46.0) % MCV (80.0-100.0) fL MCH (25.0-35.0) pg MCHC (31.0-37.0) g/dL RDW (11.5-15.5) % Plt Count (150-450) k/uL Neutrophils % % Lymphocytes % % Monocytes % % Eosinophils % % Basophils % % Neutrophils # (1.3-7.7) k/uL Lymphocytes # (1.0-4.8) k/uL Monocytes # (0-1.0) k/uL Eosinophils # (0-0.7) k/uL Basophils # (0-0.2) k/uL PT 10.3 (9.0-12.0) sec INR 1.0 (<1.1) APTT 23.5 (22.0-30.0) sec Sodium (137-145) mmol/L Potassium (3.5-5.1) mmol/L Chloride (98-107) mmol/L Carbon Dioxide (22-30) mmol/L Anion Gap mmol/L BUN (7-17) mg/dL Creatinine (0.52-1.04) mg/dL Est GFR (MDRD) Af Amer (>60 ml/min/1.73 sqM) Est GFR (MDRD) Non-Af (>60 ml/min/1.73 sqM) Glucose (74-99) mg/dL Plasma Lactic Acid David 0.8 (0.7-2.0) mmol/L Calcium (8.4-10.2) mg/dL Total Bilirubin (0.2-1.3) mg/dL AST (14-36) U/L ALT (9-52) U/L Alkaline Phosphatase (38-126) U/L Total Protein (6.3-8.2) g/dL Albumin (3.5-5.0) g/dL Amylase (30-110) U/L Lipase (23-300) U/L Blood Type Blood Type Recheck Antibody Screen Spec Expiration Date - Radiology Data Radiology results: report reviewed, image reviewed Disposition Clinical Impression: Cholelithiasis, Elevated liver function tests, Elevated alkaline phosphatase level, Elevated liver enzymes, Acute pancreatitis, Elevated bilirubin Disposition: ADMITTED IP TO THIS [facility] Condition: Stable Time of Disposition: 23:23 Decision Date: 07/31/16 Decision Time: 23:23
[2016-07-31 21:29] LABS: Basophils % (A) 0 %; CH 25.9; CHCM 31.9; Eosinophils % (A) 0 %; HCT 38.2 % (34.0-46.0); HDW 2.28; HGB 12.2 gm/dL (11.4-16.0); Luc # (Auto) 0.08; Luc % (Auto) 1; Lymphocytes # (A) 1.1 k/uL (1.0-4.8); Lymphocytes % (A) 13 %; MCH 26.1 pg (25.0-35.0); MCHC 32.1 g/dL (31.0-37.0); MCV 81.5 fL (80.0-100.0); Mean Platelet Volume 6.6; Monocytes # (A) 0.4 k/uL (0-1.0); Monocytes % (A) 4 %; Neutrophils # (A) 7.3 k/uL (1.3-7.7); Neutrophils % (A) 82 %; RBC 4.69 m/uL (3.80-5.40); RDW 15.4 % (11.5-15.5); WBC 8.9 k/uL (3.8-10.6); WBC (Perox) 8.79
[2016-07-31 21:36] LABS: ALT 991 U/L (9-52); AST 576 U/L (14-36); Alkaline Phosphatase 323 U/L (38-126); Anion Gap 13 mmol/L; Blood Urea Nitrogen 7 mg/dL (7-17); Calcium 9.7 mg/dL (8.4-10.2); Carbon Dioxide 23 mmol/L (22-30); Chloride 108 mmol/L (98-107); Glucose 119 mg/dL (74-99); Non-African American GFR(MDRD) >60 (>60 ml/min/1.73 sqM); Potassium 3.8 mmol/L (3.5-5.1); Sodium 144 mmol/L (137-145); Total Bilirubin 3.8 mg/dL (0.2-1.3); Total Protein 7.7 g/dL (6.3-8.2)
--- NOTE | 2016-07-31 21:36 | XR ---
EXAMINATION TYPE: XR abdomen 2V DATE OF EXAM: 07/31/2016 9:11 PM COMPARISON: NONE HISTORY: Right upper quadrant pain TECHNIQUE: 2 views FINDINGS: Bowel gas pattern is normal. There is no sign of intestinal obstruction or pneumoperitoneum . Fecal pattern is normal. Lung bases are clear. There are no pathologic calcifications over the kidn eys. IMPRESSION: Nonacute abdomen.
[2016-07-31 21:38] LABS: Partial Thromboplastin Time 23.5 sec (22.0-30.0); Prothrombin Time 10.3 sec (9.0-12.0)
[2016-07-31 21:52] LABS: Amylase 2072 U/L (30-110)
[2016-07-31] MEDS ORDERED: HYDROmorphone 1 MG/ML 1 ML SYRINGE IV PRN (22:20)
[2016-07-31] MEDS ORDERED: ONDANSETRON 4 MG/2 ML VIAL IVP PRN (22:20)
[2016-07-31] MEDS ORDERED: NALOXONE 0.4 MG/ML 1 ML VIAL IV PRN (22:20)
[2016-07-31] MEDS ORDERED: PIPERACILLIN-TAZOBACTAM 3.375 GM in DEXTROSE/WATER 1 50ML.BAG IVPB STA (22:24)
--- NOTE | 2016-07-31 23:28 | US ---
EXAM: US Abdomen Complete. CLINICAL HISTORY: Reason: Pain TECHNIQUE: Real-time ultrasound of the abdomen (complete) with image documentation. COMPARISON: None. FINDINGS: Liver: Liver measures 16.7 cm in length. No focal mass detected. Gallbladder: Multiple gallstones. Normal gallbladder wall thickness of 2 mm. no pericholecystic fluid. Common bile duct: Common duct is dilated, measuring 10 mm in diameter. Pancreas: Mild dilatation of the main pancreatic duct in the body. Limited visualization of the pancreas due to overlying bowel gas. Right Kidney: Right kidney measures 10 cm in length. No hydronephrosis. IMPRESSION: 1. Cholelithiasis without evidence of cholecystitis. 2. Dilated common duct (10 mm). Correlate with labs for biliary obstruction, and consider MRCP for further evaluation. 3. Mild dilation of the main pancreatic duct in the body. This also could be evaluated by MRCP if indicated.
[2016-07-31] MEDS: SODIUM CHLORIDE 0.9% 1,000 ML IV SCH (23:34)
[2016-08-01] MEDS: ONDANSETRON 4 MG/2 ML VIAL IVP PRN (01:04)
[2016-08-01] MEDS: HYDROmorphone 1 MG/ML 1 ML SYRINGE IV PRN ×4 (01:37→09:38)
[2016-08-01 02:05] VITALS: BMI 39.2
[2016-08-01 07:24] LABS: Basophils % (A) 0 %; CH 25.6; Eosinophils # (A) 0.1 k/uL (0-0.7); Eosinophils % (A) 1 %; HCT 34.3 % (34.0-46.0); HDW 2.22; HGB 10.8 gm/dL (11.4-16.0); Hypochromasia Slight; Luc # (Auto) 0.11; Luc % (Auto) 2; Lymphocytes # (A) 1.5 k/uL (1.0-4.8); Lymphocytes % (A) 24 %; MCH 26.2 pg (25.0-35.0); MCHC 31.6 g/dL (31.0-37.0); MCV 82.9 fL (80.0-100.0); Mean Platelet Volume 6.5; Monocytes # (A) 0.4 k/uL (0-1.0); Monocytes % (A) 6 %; Neutrophils # (A) 4.4 k/uL (1.3-7.7); Neutrophils % (A) 68 %; RBC 4.13 m/uL (3.80-5.40); RDW 15.5 % (11.5-15.5); WBC 6.4 k/uL (3.8-10.6); WBC (Perox) 6.66
[2016-08-01 07:44] LABS: ALT 733 U/L (9-52); AST 302 U/L (14-36); Alkaline Phosphatase 265 U/L (38-126); Anion Gap 12 mmol/L; Blood Urea Nitrogen 7 mg/dL (7-17); Calcium 8.8 mg/dL (8.4-10.2); Carbon Dioxide 22 mmol/L (22-30); Chloride 110 mmol/L (98-107); Glucose 87 mg/dL (74-99); Non-African American GFR(MDRD) >60 (>60 ml/min/1.73 sqM); Potassium 3.8 mmol/L (3.5-5.1); Sodium 144 mmol/L (137-145); Total Bilirubin 2.6 mg/dL (0.2-1.3); Total Protein 6.6 g/dL (6.3-8.2)
[2016-08-01 08:11] LABS: Amylase 986 U/L (30-110)
[2016-08-01] MEDS: PIPERACILLIN-TAZOBACTAM 3.375 GM in DEXTROSE/WATER 1 50ML.BAG IVPB SCH ×3 (09:07→23:49)
[2016-08-01] MEDS: PANTOPRAZOLE 40 MG/10 ML VIAL IV SCH (09:07)
[2016-08-01] MEDS: SODIUM CHLORIDE 0.9% 1,000 ML IV SCH (09:35)
--- NOTE | 2016-08-01 09:44 | P.CONS ---
History of Present Illness - Reason for Consult Consult date: 08/01/16 Pancreatitis Requesting physician: Kamille Crespo - History of Present Illness 26-year-old female presents with acute abdominal pain, jaundice, and elevated liver enzymes. Patient is been experiencing mid back pain for the last month. She was evaluated in the emergency room regarding this symptom Saturday and discharged stating that she was "having a gallbladder attack". At that time her liver enzymes were elevated; AST 614. ALT 344. Alkaline phosphates 158. Total bilirubin 1.0. Lipase 298. She returned within 48 hours with increased midepigastric pain nausea vomiting changes in the color of her urine and persistent back pain. Admission total bilirubin 3.8. AST 576. ALT 991. Alkaline phosphatase 323. Amylase 2072. Lipase greater than 20,000. White count 8.9. Hemoglobin 12.2. INR 1.0. No history of hepatitis or EtOH abuse. No changes in medications. Denies fever, chills, acholic stools. T-max 100.3. Ultrasound abdomen reported cholelithiasis with dilated common bile duct 10 mm. Currently amylase 986. Lipase and 6306. Total bilirubin 2.6. AST 302. ALT 733. Alkaline phosphates 265. 07/29/2016 hCG not detected. Review of Systems Constitutional: Denies fever, chills, sweats, weight gain, or loss. Obese. HEENT: Negative for migraines, blurred vision or loss, earaches, drainage, tinnitus, oral mucosal lesions, dysphagia, or odynophagia. CARDIAC: Negative for chest pain, arrhythmias, or palpitation. RESPIRATORY: Negative for shortness of breath, hemoptysis, cough, or sputum production. GI: See HPI for pertinent findings. : Negative for hematuria, urgency, frequency, polyuria, or dysuria. GYNc: Denies possibility of . Negative vaginal discharge. MUSCULOSKELETAL: Negative for muscle aches, swelling, arthritis, and arthralgias. NEUROLOGIC: Negative for stroke or TIA. ENDOCRINE: Negative for thyroid problems. SKIN: Negative for rash or itching. PSYCHIATRIC: Negative history for depression and anxiety Past Medical History Past Medical History: No Reported History Additional Past Medical History / Comment(s): Elevated liver enzymes, chol History of Any Multi-Drug Resistant Organisms: None Reported Past Surgical History: Section Additional Past Surgical History / Comment(s): [place] tooth extraction, c- section on 06/14/16, had gestastional diabetes during Past Anesthesia/Blood Transfusion Reactions: No Reported Reaction Past Psychological History: No Psychological Hx Reported Smoking Status: Never smoker Past Alcohol Use History: None Reported Past Drug Use History: None Reported - Past Family History Mother Family Medical History: Cancer, Diabetes Mellitus Medications and Allergies Home Medications Medication Instructions Recorded Confirmed Type Acetaminophen-Codeine 300-30mg 2 tab PO Q6H PRN 07/31/16 07/31/16 History [Tylenol #3] Allergies Allergy/AdvReac Type Severity Reaction Status Date / Time No Known Allergies Allergy Verified 07/31/16 20:10 Physical Exam Vitals: Vital Signs Temp Pulse Resp BP Pulse Ox 08/01/16 06:24 98.8 F 78 18 106/58 96 Intake and Output 07/31/16 08/01/16 08/01/16 22:59 06:59 14:59 Output Total 600 Balance -600 Output: Urine 600 Other: Voiding Method Toilet Weight 94.347 kg General appearance: The patient is alert, oriented, in no acute distress. Jaundice. HET: Head is normocephalic and atraumatic. Pupils are equal and reactive. Scleral icterus. Oropharynx is clear without lesions. Neck: Supple without lymphadenopathy. Trachea midline. Heart: S1 S2. Regular rate and rhythm. Lungs: No crackles or wheezes are heard. Abdomen: Soft, midepigastric tenderness, obese, nondistended with bowel sounds. No peritoneal signs. No palpable organomegaly or masses. Extremities: Normal skin color and turgor. No cyanosis, rash, ulceration, clubbing, or edema. Radial and pedal pulses are 2/4 bilaterally. Neurological: No focal deficits. Strength and sensation are grossly intact. Results CBC & Chem 7: 08/01/16 06:34 08/01/16 06:34 Labs: Abnormal Lab Results - Last 24 Hours (Table) 08/01/16 08/01/16 Range/Units 06:34 06:34 Hgb 10.8 L (11.4-16.0) gm/dL Chloride 110 H (98-107) mmol/L Total Bilirubin 2.6 H (0.2-1.3) mg/dL AST 302 H (14-36) U/L ALT 733 H (9-52) U/L Alkaline Phosphatase 265 H (38-126) U/L Albumin 3.4 L (3.5-5.0) g/dL Amylase 986 H* (30-110) U/L Lipase 6306 H (23-300) U/L US - abdomen: report reviewed (Review by Dr. Oneal) Assessment and Plan (1) Obstructive jaundice Status: Acute (2) Acute gallstone pancreatitis Status: Acute (3) Obesity (BMI 35.0-39.9 without comorbidity) Status: Chronic Plan: 1. Nothing by mouth except ice chips medications popsicles. 2. Repeat chemistries in a.m. IV hydration. Supportive measures. 3. ERCP discussed and tentative based on clinical course. 4. IV antibiotics. Thank you for this kind referral and the opportunity to participate in the care of your patient. This consultation was discussed with Dr. Oneal. The impression and plan of care have been directed as dictated.
[2016-08-01 11:40] LABS: Hepatitis B Surface Ag Index 0.07
[2016-08-01 11:45] LABS: Hepatitis B Core IgM Index 0.05
[2016-08-01 11:57] LABS: Hepatitis C Virus IgG Index 0.03
[2016-08-01 12:00] LABS: Hepatitis C Virus IgG Ab Negative (Negative)
--- NOTE | 2016-08-01 13:39 | P.GSCN ---
History of Present Illness Consult date: 08/01/16 Reason for Consult: Cholelithiasis Requesting physician: Sheree Donis History of present illness: Patient is a 26-year-old female, patient of Dr. Cruz in the outpatient setting, with medical history significant for cholelithiasis and elevated liver enzymes, presenting to the emergency department with complaints of right upper quadrant pain radiating to her back associated with fevers, nausea and vomiting with evidence of cholelithiasis without evidence of cholecystitis and acute gallstone pancreatitis as evidence by ultrasound of abdomen. Patient states she was diagnosed with gallstones in May when she was associated with elevated liver enzymes. Patient reports back pain since Saturday that progressed to right upper quadrant and epigastric pain. Patient was evaluated in the emergency department on Saturday and discharged home with the impression of a "gallbladder attack." Patient presented with increased abdominal pain on Saturday with abdominal ultrasound positive for cholelithiasis without evidence of cholecystitis, dilated common duct of 10 m suspect secondary to biliary obstruction, and mild dilation of main pancreatic duct. Patient reports dark urine. No history of diarrhea constipation. T-max the last 24 hours 100.3. No evidence of leukocytosis. On admission total bilirubin 3.8, AST 576, ALT 991 , alkaline phosphatase 323, amylase 2072, lipase greater than 20,000. Labs this morning: Total bilirubin decreased to 2.6, AST 302, ALT 733, alkaline phosphatase 265, amylase 9086, lipase 6306. Hepatitis panel negative. Patient has been evaluated by gastrointestinal service with possibility of ERCP pending clinical course. Patient is currently on IV antibiotics in form of Zosyn. Past Medical History Past Medical History: No Reported History Additional Past Medical History / Comment(s): Elevated liver enzymes, chol History of Any Multi-Drug Resistant Organisms: None Reported Past Surgical History: Section Additional Past Surgical History / Comment(s): [place] tooth extraction, c- section on 06/14/16, had gestastional diabetes during Past Anesthesia/Blood Transfusion Reactions: No Reported Reaction Past Psychological History: No Psychological Hx Reported Smoking Status: Never smoker Past Alcohol Use History: None Reported Past Drug Use History: None Reported - Past Family History Mother Family Medical History: Cancer, Diabetes Mellitus Medications and Allergies Home Medications Medication Instructions Recorded Confirmed Type Acetaminophen-Codeine 300-30mg 2 tab PO Q6H PRN 07/31/16 07/31/16 History [Tylenol #3] Allergies Allergy/AdvReac Type Severity Reaction Status Date / Time No Known Allergies Allergy Verified 07/31/16 20:10 Surgical - Exam Vital Signs Temp Pulse Resp BP Pulse Ox 100.3 F H 130 H 18 131/96 98 07/31/16 19:39 07/31/16 19:39 07/31/16 19:39 07/31/16 19:39 07/31/16 19:39 GENERAL: Pt awake and alert, well-appearing, well-nourished, and in no acute distress. HEAD: Atraumatic, normocephalic. EYES: Pupils equal and round. Sclera anicteric, conjunctiva are normal. LUNGS: Breath sounds clear to auscultation bilaterally. No wheezes, rales, or rhonchi. HEART: Heart S1, S2, no S3 or S4. Regular rate and rhythm. No murmurs, rubs or gallops. ABDOMEN: Soft, mild epigastric and right upper quadrant tenderness, nondistended , normoactive bowel sounds. No guarding, no rebound. No masses or organomegaly appreciated. EXTREMITIES: Palpable peripheral pulses. No edema. No calf tenderness. NEUROLOGICAL: Pt oriented x 3. No focal deficits. Strength and sensation grossly intact. PSYCH: Normal mood, normal affect. SKIN: Warm, dry, intact. Normal turgor. No rashes or lesions. Results - Labs 08/01/16 06:34 08/01/16 06:34 Abnormal Lab Results - Last 24 Hours (Table) 08/01/16 08/01/16 Range/Units 06:34 06:34 Hgb 10.8 L (11.4-16.0) gm/dL Chloride 110 H (98-107) mmol/L Total Bilirubin 2.6 H (0.2-1.3) mg/dL AST 302 H (14-36) U/L ALT 733 H (9-52) U/L Alkaline Phosphatase 265 H (38-126) U/L Albumin 3.4 L (3.5-5.0) g/dL Amylase 986 H* (30-110) U/L Lipase 6306 H (23-300) U/L Diabetes panel 08/01/16 Range/Units 06:34 Sodium 144 (137-145) mmol/L Potassium 3.8 (3.5-5.1) mmol/L Chloride 110 H (98-107) mmol/L Carbon Dioxide 22 (22-30) mmol/L BUN 7 (7-17) mg/dL Creatinine 0.67 (0.52-1.04) mg/dL Glucose 87 (74-99) mg/dL Calcium 8.8 (8.4-10.2) mg/dL AST 302 H (14-36) U/L ALT 733 H (9-52) U/L Alkaline Phosphatase 265 H (38-126) U/L Total Protein 6.6 (6.3-8.2) g/dL Albumin 3.4 L (3.5-5.0) g/dL Calcium panel 08/01/16 Range/Units 06:34 Calcium 8.8 (8.4-10.2) mg/dL Albumin 3.4 L (3.5-5.0) g/dL Pituitary panel 08/01/16 Range/Units 06:34 Sodium 144 (137-145) mmol/L Potassium 3.8 (3.5-5.1) mmol/L Chloride 110 H (98-107) mmol/L Carbon Dioxide 22 (22-30) mmol/L BUN 7 (7-17) mg/dL Creatinine 0.67 (0.52-1.04) mg/dL Glucose 87 (74-99) mg/dL Calcium 8.8 (8.4-10.2) mg/dL Adrenal panel 08/01/16 Range/Units 06:34 Sodium 144 (137-145) mmol/L Potassium 3.8 (3.5-5.1) mmol/L Chloride 110 H (98-107) mmol/L Carbon Dioxide 22 (22-30) mmol/L BUN 7 (7-17) mg/dL Creatinine 0.67 (0.52-1.04) mg/dL Glucose 87 (74-99) mg/dL Calcium 8.8 (8.4-10.2) mg/dL Total Bilirubin 2.6 H (0.2-1.3) mg/dL AST 302 H (14-36) U/L ALT 733 H (9-52) U/L Alkaline Phosphatase 265 H (38-126) U/L Total Protein 6.6 (6.3-8.2) g/dL Albumin 3.4 L (3.5-5.0) g/dL - Imaging Abdominal x-ray: report reviewed CT scan - abdomen: report reviewed Assessment and Plan Plan: Impression: 1. Cholelithiasis without cholecystitis. 2. Acute gallstone pancreatitis. Plan: 1. Continue diet per gastrointestinal service. Continue IV antibiotics. Continue IV hydration. Continue supportive treatment and pain management. Possible ERCP per gastrointestinal service. Patient will need cholecystectomy when medically stable. The above impression and plan have been discussed and directed by Dr. Hamlin. Kenton DANIEL acting as scribe for Dr. Hamlin.
[2016-08-01] MEDS: MORPHINE SULFATE 4 MG/ML SYRINGE IVP PRN ×3 (14:45→23:48)
[2016-08-01] MEDS: LACTATED RINGERS 1,000 ML IV SCH ×2 (16:19→21:33)
--- NOTE | 2016-08-01 17:25 | HP ---
DATE OF ADMISSION: Patient is a 26-year-old who came in with abdominal pain in the epigastric area radiating to the back, sharp in nature, with elevated liver enzymes. Patient was found to have cholelithiasis with possible choledocholithiasis. Patient's pain was 10/10, which is improving at this point of time. Patient is on IV fluids, n.p.o. at this time. Patient's lipase was greater than 20,000. Amylase was 2000. Now it is coming down and liver enzymes are also coming down, with the possibility of passage of stone. Patient will eventually need cholecystectomy. Patient had a low-grade fever, because of which patient was started on empiric antibiotics for the possibility of ascending cholangitis. REVIEW OF SYSTEMS: CONSTITUTIONAL: No fever, no malaise, no fatigue. HEENT: No recent visual problems or hearing problems. Denied any sore throat. CARDIOVASCULAR: No chest pain, orthopnea, PND, no palpitations, no syncope. PULMONARY: No shortness of breath, no cough, no hemoptysis. GASTROINTESTINAL: As described in HPI. NEUROLOGICAL: No headaches, no weakness, no numbness. HEMATOLOGICAL: Denies any bleeding or petechiae. GENITOURINARY: Denies any burning micturition, frequency, or urgency. MUSCULOSKELETAL/RHEUMATOLOGICAL: Denies any joint pain, swelling, or any muscle pain. ENDOCRINE: Denies any polyuria or polydipsia. The rest of the 14 point review of systems is negative. Past medical history is significant for section in the past. SOCIAL HISTORY: Denied any smoking, alcohol abuse or any drug abuse. FAMILY HISTORY: Mother had cancer and diabetes mellitus. HOME MEDICATIONS: Acetaminophen/codeine. ALLERGIES: NO KNOWN DRUG ALLERGIES. PHYSICAL EXAMINATION: VITAL SIGNS: Temperature 98.8, pulse of 89, respiratory rate of 18, blood pressure 119/63. Saturating at 96% on room air. GENERAL: The patient is alert and oriented x3, not in any acute distress. Well developed, well nourished. HEENT: Pupils are round and equally reacting to light. EOMI. No scleral icterus. No conjunctival pallor. Normocephalic, atraumatic. No pharyngeal erythema. No thyromegaly. CARDIOVASCULAR: S1 and S2 present. No murmurs, rubs, or gallops. PULMONARY: Chest is clear to auscultation, no wheezing or crackles. ABDOMEN: Epigastric abdominal tenderness was appreciated. Minimal. No rebound or rigidity. MUSCULOSKELETAL: No joint swelling or deformity. EXTREMITIES: No cyanosis, clubbing, or pedal edema. NEUROLOGICAL: Gross neurological examination did not reveal any focal deficits. SKIN: No rashes. LABORATORY DATA: As mentioned above. Discussed as mentioned above. Patient has elevated chloride, because of which her IV fluids will be changed to lactated Ringer's. ASSESSMENT AND PLAN: 1. Gallstone pancreatitis. 2. Possible choledocholithiasis with ascending cholangitis, for which patient is on IV fluids and IV antibiotics, n.p.o. Improving liver enzymes. If patient's liver enzymes are not improved, patient will undergo ERCP. If bilirubin is not improved, patient will undergo ERCP. 3. Obesity. Counseling was provided regarding that. Will repeat liver function tests tomorrow.
[2016-08-01] MEDS ORDERED: ACETAMINOPHEN IV (For NPO) 1,000 MG in EMPTY BAG 1 BAG IVPB PRN (20:49)
[2016-08-02] MEDS: LACTATED RINGERS 1,000 ML IV SCH ×3 (02:58→21:05)
[2016-08-02] MEDS: MORPHINE SULFATE 4 MG/ML SYRINGE IVP PRN (06:18)
[2016-08-02] MEDS: ONDANSETRON 4 MG/2 ML VIAL IVP PRN (06:23)
[2016-08-02] MEDS: PIPERACILLIN-TAZOBACTAM 3.375 GM in DEXTROSE/WATER 1 50ML.BAG IVPB SCH ×2 (08:06→16:04)
[2016-08-02] MEDS: PANTOPRAZOLE 40 MG/10 ML VIAL IV SCH (08:06)
[2016-08-02 08:29] LABS: ALT 447 U/L (9-52); AST 92 U/L (14-36); Alkaline Phosphatase 215 U/L (38-126); Amylase 134 U/L (30-110); Anion Gap 9 mmol/L; Blood Urea Nitrogen 7 mg/dL (7-17); Calcium 8.9 mg/dL (8.4-10.2); Carbon Dioxide 22 mmol/L (22-30); Chloride 109 mmol/L (98-107); Glucose 83 mg/dL (74-99); Non-African American GFR(MDRD) >60 (>60 ml/min/1.73 sqM); Potassium 3.6 mmol/L (3.5-5.1); Sodium 140 mmol/L (137-145); Total Bilirubin 1.1 mg/dL (0.2-1.3)
[2016-08-02 10:46] LABS: Appearance,Urine Cloudy (Clear); Bilirubin,Urine Negative (Negative); Glucose,Urine (UA) Negative (Negative); Ketones,Urine 1+ (Negative); Leukocyte Esterase,Urine Trace (Negative); Nitrite,Urine Negative (Negative); Particle Count 2881; Protein,Urine Negative (Negative); RBC,Urine 1 /hpf (0-5); Squamous Epithelial Cell,Urine 24 /hpf (0-4); UA Billing (MACRO vs. MICRO) MICRO; WBC,Urine 7 /hpf (0-5)
[2016-08-02] MEDS ORDERED: IV FLUID CONTINUATION 1,000 ML IV ONE (11:25)
[2016-08-02] MEDS ORDERED: PROPOFOL 10 MG/ML 20 ML VIAL IV ONE (11:50)
[2016-08-02] MEDS ORDERED: LIDOCAINE 1% INJ 10MG/ML (20 ML MDV) ONE (11:50)
[2016-08-02] MEDS ORDERED: INDOMETHACIN 50MG SUPPOSITORY RECTAL ONE (12:00)
--- NOTE | 2016-08-02 12:06 | P.PCN ---
Date of Procedure: 08/02/16 Procedure(s) Performed: Brief history: Patient is a 26 year-old pleasant lady scheduled for an ERCP as part of evaluation of abdominal pain and elevated serum transaminases and acute biliary pancreatitis for the last 2 days' duration. She had ulcerative abdomen done that showed multiple gallstones and a dilated common bile duct and hence she is scheduled for an ERCP to rule out CBD stones. Procedure performed: ERCP Preoperative diagnoses: Acute biliary pancreatitis, elevated LFTs, and ultrasound showed dilated CBD, rule out CBD stone IV sedation per anesthesia: Procedure: After informed consent was obtained from the patient and after the risks benefits and complications including bleeding perforation and pancreatitis explained in detail the patient was brought into the endoscopy unit. The patient was placed in prone position and IV conscious sedation was administered by anesthesia under continuous monitoring. The Olympus side-viewing duodenoscope was then inserted into the mouth and esophagus intubated without any difficulty. The scope was gradually advanced into the stomach and duodenum. The major papilla was identified without any difficulty. Initial cannulation resulted in opacification of the pancreatic duct appeared normal. Subsequent cannulation resulted in opacification of the common bile duct and upon injection of the dye, it appeared dilated measuring at least 1 cm in diameter but no obvious filling defect identified. No intrahepatic biliary dilation seen. No therapeutic intervention was performed as no filling defects seen. Patient tolerated the procedure well. Impression: 1. Normal-appearing pancreatic duct 2. Likely dilated common bile duct measuring 1 cm in diameter but no filling defects or strictures identified. Recommendations: The findings of this examination were discussed with the patient as well as a family.n She'll be started on a clear liquid diet today and she can proceed with laparoscopic cholecystectomy tomorrow.
[2016-08-02] MEDS ORDERED: IOHEXOL 300 MG/ML 50 ML BOTTLE MISCELLANE ONE (12:08)
--- NOTE | 2016-08-02 12:19 | FL ---
EXAMINATION TYPE: FL ERCP biliary duct only DATE OF EXAM: 08/02/2016 12:09 PM COMPARISON: NONE HISTORY: common bile duct dilation Fluoroscopy support supplied to the referring clinician. See dictated report from gastroenterology, 1 minute 38 sec fluoro time supplied. Intraoperative image documents the procedure.
--- NOTE | 2016-08-02 16:05 | P.PN ---
Subjective Principal diagnosis: Gallstone pancreatitis Patient is a 26-year-old female admitted with cholelithiasis and acute gallstone pancreatitis. Patient is status post ERCP with findings of normal-appearing pancreatic duct with no evidence of common bile duct stones. Liver enzymes trending down. Patient is feeling better. Patient still has minimal epigastric pain but states better than yesterday. Denies nausea, vomiting, chills, shortness of breath, or chest pain. Patient is urinating without difficulties. Patient is passing flatus without bowel movement. Objective - Vital Signs Vital signs: Vital Signs Temp 97.0 F L 08/02/16 13:15 Pulse 64 08/02/16 13:15 Resp 20 08/02/16 13:15 BP 113/71 08/02/16 13:15 Pulse Ox 98 08/02/16 13:15 Intake & Output 08/01/16 08/02/16 08/02/16 18:59 06:59 18:59 Intake Total 100 Output Total 300 400 Balance -300 -400 100 Intake: IV 100 Output: Urine 300 400 Other: Voiding Method Toilet # Voids 1 1 1 - Exam GENERAL: Pt awake and alert, well-appearing, well-nourished, and in no acute distress. HEAD: Atraumatic, normocephalic. EYES: Pupils equal and round. Sclera anicteric, conjunctiva are normal. LUNGS: Breath sounds clear to auscultation bilaterally. No wheezes, rales, or rhonchi. HEART: Heart S1, S2, no S3 or S4. Regular rate and rhythm. No murmurs, rubs or gallops. ABDOMEN: Soft, mild epigastric tenderness, nondistended, normoactive bowel sounds. No guarding, no rebound. No masses or organomegaly appreciated. EXTREMITIES: Palpable peripheral pulses. No edema. No calf tenderness. NEUROLOGICAL: Pt oriented x 3. No focal deficits. Strength and sensation grossly intact. PSYCH: Normal mood, normal affect. SKIN: Warm, dry, intact. Normal turgor. No rashes or lesions. - Labs CBC & Chem 7: 08/01/16 06:34 08/02/16 08:04 Labs: Abnormal Lab Results - Last 24 Hours (Table) 08/02/16 08/02/16 Range/Units 08:04 10:15 Chloride 109 H (98-107) mmol/L AST 92 H (14-36) U/L ALT 447 H (9-52) U/L Alkaline Phosphatase 215 H (38-126) U/L Total Protein 6.0 L (6.3-8.2) g/dL Albumin 2.9 L (3.5-5.0) g/dL Amylase 134 H (30-110) U/L Lipase 468 H (23-300) U/L Urine Appearance Cloudy H (Clear) Urine Ketones 1+ H (Negative) Ur Leukocyte Esterase Trace H (Negative) Urine WBC 7 H (0-5) /hpf Ur Squamous Epith Cells 24 H (0-4) /hpf Assessment and Plan Plan: Impression: 1. Cholelithiasis without cholecystitis. 2. Acute gallstone pancreatitis status post ERCP with normal-appearing pancreatic duct and no evidence of common bile duct stones. Plan: 1. Patient will undergo lab scopic cholecystectomy tomorrow. Patient will be nothing by mouth after midnight. Repeat CMP in a.m. The above impression and plan have been discussed and directed by Dr. Hamlin. Kenton DANIEL acting as scribe for Dr. Hamlin.
[2016-08-02] MEDS ORDERED: HYDROmorphone 1 MG/ML 1 ML SYRINGE IVP PRN (16:51)
[2016-08-02] MEDS ORDERED: SCOPOLAMINE 1.5MG/72HR PATCH TRANSDERM ONE (16:51)
[2016-08-02] MEDS ORDERED: DEXAMETHASONE SOD PHOSPHATE 10 MG/ML 1 ML VIAL IV ONE (16:51)
[2016-08-02] MEDS ORDERED: MIDAZOLAM 2 MG/2 ML VIAL IV PRN (16:51)
[2016-08-02] MEDS ORDERED: LACTATED RINGERS 1,000 ML IV SCH (17:00)
--- NOTE | 2016-08-02 19:02 | PN ---
Patient is admitted with gallstone pancreatitis. The patient underwent ERCP. No stone was found, but patient underwent sphincterotomy. Patient is going for cholecystectomy tomorrow. Patient has improving liver enzymes and amylase and lipase are improving. Bilirubin has come down significantly. REVIEW OF SYSTEMS: CARDIOVASCULAR: No chest pain, no orthopnea, no PND, no palpitations. PULMONARY: Denied any shortness of breath. No cough or hemoptysis. GASTROINTESTINAL: Significantly improved abdominal pain. Patient is able to tolerate clear liquid diet. NEUROLOGIC: No headaches, no weakness, no numbness. Medications were reviewed. PHYSICAL EXAMINATION: VITAL SIGNS: Temperature 97.0, pulse of 64, respiratory rate 20, blood pressure 113/71, saturating at 98% on the medicine old milligrams. GENERAL: The patient is alert and oriented x3, not in any acute distress. Well developed, well nourished. HEENT: Pupils are round and equally reacting to light. EOMI. No scleral icterus. No conjunctival pallor. Normocephalic, atraumatic. No pharyngeal erythema. No thyromegaly. CARDIOVASCULAR: S1 and S2 present. No murmurs, rubs, or gallops. PULMONARY: Chest is clear to auscultation, no wheezing or crackles. ABDOMEN: Soft, nontender, nondistended, normoactive bowel sounds. No palpable organomegaly. MUSCULOSKELETAL: No joint swelling or deformity. EXTREMITIES: No cyanosis, clubbing, or pedal edema. NEUROLOGICAL: Gross neurological examination did not reveal any focal deficits. SKIN: No rashes. LABORATORY DATA: As mentioned above. ASSESSMENT AND PLAN: 1. Gallstone pancreatitis with choledocholithiasis. 2. Cholelithiasis. 3. Obesity. PLAN: Continue with IV fluids. Continue with antibiotics. Cholecystectomy tomorrow.
[2016-08-03] MEDS: LACTATED RINGERS 1,000 ML IV SCH ×2 (04:21→12:27)
[2016-08-03 06:44] LABS: Basophils % (A) 1 %; CH 25.9; CHCM 31.4; Eosinophils # (A) 0.2 k/uL (0-0.7); Eosinophils % (A) 3 %; HDW 2.28; HGB 10.2 gm/dL (11.4-16.0); Luc # (Auto) 0.15; Luc % (Auto) 3; Lymphocytes # (A) 1.8 k/uL (1.0-4.8); Lymphocytes % (A) 34 %; MCH 26.3 pg (25.0-35.0); MCHC 31.7 g/dL (31.0-37.0); MCV 82.9 fL (80.0-100.0); Mean Platelet Volume 6.6; Monocytes # (A) 0.3 k/uL (0-1.0); Monocytes % (A) 6 %; Neutrophils # (A) 2.8 k/uL (1.3-7.7); Neutrophils % (A) 54 %; RBC 3.86 m/uL (3.80-5.40); RDW 15.8 % (11.5-15.5); WBC 5.2 k/uL (3.8-10.6); WBC (Perox) 5.56
[2016-08-03 06:55] LABS: ALT 314 U/L (9-52); AST 42 U/L (14-36); Alkaline Phosphatase 182 U/L (38-126); Anion Gap 7 mmol/L; Blood Urea Nitrogen 4 mg/dL (7-17); Calcium 8.8 mg/dL (8.4-10.2); Carbon Dioxide 25 mmol/L (22-30); Chloride 112 mmol/L (98-107); Glucose 100 mg/dL (74-99); Non-African American GFR(MDRD) >60 (>60 ml/min/1.73 sqM); Potassium 3.5 mmol/L (3.5-5.1); Sodium 144 mmol/L (137-145); Total Bilirubin 0.8 mg/dL (0.2-1.3); Total Protein 5.7 g/dL (6.3-8.2)
[2016-08-03] MEDS: PANTOPRAZOLE 40 MG/10 ML VIAL IV SCH (08:35)
[2016-08-03] MEDS ORDERED: ACETAMINOPHEN IV (For NPO) 1,000 MG in EMPTY BAG 1 BAG IVPB STA (08:48)
[2016-08-03] MEDS: ONDANSETRON 4 MG/2 ML VIAL IVP PRN ×2 (08:58→14:05)
[2016-08-03] MEDS: PIPERACILLIN-TAZOBACTAM 3.375 GM in DEXTROSE/WATER 1 50ML.BAG IVPB SCH ×3 (09:47→16:50)
[2016-08-03] MEDS ORDERED: HEPARIN SODIUM,PORCINE 5,000 UNIT/ML 1 ML VIAL SQ STA (13:54)
[2016-08-03] MEDS ORDERED: IV FLUID CONTINUATION 1,000 ML IV ONE (14:04)
[2016-08-03] MEDS ORDERED: BUPIVACAIN-EPI 0.25%-1:200,000 30 ML VIAL SQ ONE (14:16)
[2016-08-03] MEDS ORDERED: GLYCOPYRROLATE 0.2 MG/ML 2 ML VIAL ONE (14:20)
[2016-08-03] MEDS ORDERED: SUCCINYLCHOLINE CHLORIDE 100 MG/5 ML SYR IV ONE (14:20)
[2016-08-03] MEDS ORDERED: PROPOFOL 10 MG/ML 20 ML VIAL IV ONE (14:20)
[2016-08-03] MEDS ORDERED: MIDAZOLAM 2 MG/2 ML VIAL ONE (14:20)
[2016-08-03] MEDS ORDERED: ROCURONIUM BROMIDE 10 MG/ML 10 ML VIAL IV ONE (14:20)
[2016-08-03] MEDS ORDERED: KETOROLAC 30 MG/ML 1 ML VIAL ONE (14:20)
[2016-08-03] MEDS ORDERED: NEOSTIGMINE 1 MG/ML 10 ML VIAL ONE (14:20)
[2016-08-03] MEDS ORDERED: LIDOCAINE 1% INJ 10MG/ML (20 ML MDV) ONE (14:20)
[2016-08-03] MEDS ORDERED: fentaNYL (PF) 50 MCG/ML 2 ML AMP ONE (14:20)
[2016-08-03] MEDS ORDERED: HYDROmorphone (PF) 1 MG/ML ONE (14:20)
[2016-08-03] MEDS ORDERED: NALOXONE 0.4 MG/ML 1 ML VIAL IV PRN (14:59)
[2016-08-03] MEDS ORDERED: LACTATED RINGERS 1,000 ML IV ONE ×3 (14:59→15:40)
[2016-08-03] MEDS ORDERED: ACETAMINOPHEN TAB 325 MG TAB PO PRN (14:59)
[2016-08-03] MEDS ORDERED: HYDROcodone/APAP 5-325MG 1 EACH TAB PO PRN (14:59)
--- NOTE | 2016-08-03 14:59 | P.OP ---
Date of Procedure: 08/03/16 Preoperative Diagnosis: Cholecystitis Postoperative Diagnosis: Cholecystitis Procedure(s) Performed: Laparoscopic cholecystectomy Anesthesia: ROSE Surgeon: Jose Hamlin Estimated Blood Loss (ml): 5 Pathology: other (Gallbladder) Condition: stable Disposition: PACU Description of Procedure: The patient was placed on the operating table. The patient received a general endotracheal tube anesthesia. The patients abdomen was prepped and draped in the usual sterile fashion. Through an infraumbilical stab incision, the fascia of the anterior abdominal wall was grasped with a pair of Kochers and then the Veress needle was placed in the peritoneal cavity. Position of the Veress needle was confirmed with positive drop test. The abdomen was then insufflated. After adequate insufflation, the 10 mm trocar was placed in the peritoneal cavity. Following this the laparoscope was placed in the peritoneal cavity. The patient was placed in the head-up, right side up position and then a 5 mm trocar was placed in the right lateral and right subcostal position under direct visualization. A 8 mm trocar was placed in the epigastric position. The gallbladder was grasped in the fundus and infundibulum. Traction on the gallbladder was placed in the lateral and the cephalad positions. The triangle of Calot was visualized.. The cystic duct was bluntly dissected until the union of the cystic duct and common bile duct was seen. The cystic duct was then divided and sealed with the Harmonic scissors. A PDS Endoloop was then placed throughout the cystic duct stump. The cystic artery divided and sealed with the Harmonic scissors. The gallbladder was then removed from the liver bed using Harmonic scissors. The gallbladder was then extracted through the epigastric port site. Operative field was checked for any bleeding spots and Harmonic scissors was used to coagulate the liver bed. The abdomen was irrigated. The trocars were removed. The skin was closed using interrupted 3-0 Vicryl suture. Dermabond dressing were applied. The patient tolerated the procedure well.
[2016-08-03] MEDS: KETOROLAC 30 MG/ML 1 ML VIAL IVP SCH ×2 (16:22→20:59)
[2016-08-03] MEDS: HYDROmorphone 1 MG/ML 1 ML SYRINGE IVP PRN ×2 (18:15→22:15)
--- NOTE | 2016-08-03 19:27 | PN ---
Patient is admitted with gallstone pancreatitis, underwent ERCP and patient is going for cholecystectomy today. Patient continues to be on Zosyn. Patient is clinically doing well and patient did not go for surgery yet by the time I evaluated the patient. REVIEW OF SYSTEMS: CARDIOVASCULAR: No chest pain, no orthopnea, no PND, no palpitations. PULMONARY: Denied any shortness of breath. No cough or hemoptysis. GASTROINTESTINAL: No diarrhea, nausea or vomiting. No abdominal pain. Normoactive bowel sounds. NEUROLOGIC: No headaches, no weakness, no numbness. Medications were reviewed. PHYSICAL EXAMINATION: VITAL SIGNS: Temperature 97.4, pulse 64, respiratory rate 18, blood pressure is 115/60, saturating 100% on room air. GENERAL: The patient is alert and oriented x3, not in any acute distress. Well developed, well nourished. HEENT: Pupils are round and equally reacting to light. EOMI. No scleral icterus. No conjunctival pallor. Normocephalic, atraumatic. No pharyngeal erythema. No thyromegaly. CARDIOVASCULAR: S1 and S2 present. No murmurs, rubs, or gallops. PULMONARY: Chest is clear to auscultation, no wheezing or crackles. ABDOMEN: Soft, nontender, nondistended, normoactive bowel sounds. No palpable organomegaly. MUSCULOSKELETAL: No joint swelling or deformity. EXTREMITIES: No cyanosis, clubbing, or pedal edema. NEUROLOGICAL: Gross neurological examination did not reveal any focal deficits. SKIN: No rashes. LABORATORY DATA: Bilirubin has come down. Chloride is minimally elevated because of which patient is on lactated Ringer's, which will continue. AST and ALT are coming down as well. ASSESSMENT AND PLAN: 1. Gallstone pancreatitis. Pancreatitis improved. Patient will resumed on diet after surgery. 2. Cholelithiasis with possibility of cholecystitis. 3. Obesity. PLAN: Continue with antibiotics. Continue with IV fluids. Possibility of discharge tomorrow.
[2016-08-04] MEDS: PIPERACILLIN-TAZOBACTAM 3.375 GM in DEXTROSE/WATER 1 50ML.BAG IVPB SCH ×3 (00:30→10:22)
[2016-08-04] MEDS: KETOROLAC 30 MG/ML 1 ML VIAL IVP SCH ×2 (02:59→09:17)
[2016-08-04] MEDS: HYDROmorphone 1 MG/ML 1 ML SYRINGE IVP PRN (06:00)
[2016-08-04 08:30] VITALS: BP 119/75; PULSE 69; RESP 18; TEMP 98.1
[2016-08-04] MEDS: PANTOPRAZOLE 40 MG/10 ML VIAL IV SCH (10:27)
--- NOTE | 2016-08-04 10:53 | P.PN ---
Progress Note - Text The patient feels well. She has minimal incisional pain. On exam her vital signs are stable. Her abdomen soft. Her incision sites are clean dry and intact. Status post laparoscopic cholecystectomy for gallstone pancreas. Patient will be discharged home later today. She'll follow-up one week.
--- NOTE | 2016-08-04 12:54 | DS ---
DATE OF ADMISSION: 07/31/2016 DATE OF DISCHARGE: 08/04/2016 Patient is admitted with gallstone pancreatitis. The patient underwent ERCP because of suspicion of choledocholithiasis. Patient had low-grade fever, although patient underwent cholecystectomy with the possibility of cholecystitis as well and cholelithiasis and gallstone pancreatitis. Patient is clinically doing well and patient was discharged by surgeon already today. FINAL DIAGNOSES: 1. Gallstone pancreatitis. 2. Cholelithiasis. 3. Obesity. Surgery did not recommend any antibiotics at this point of time and patient has codeine and acetaminophen that is Tylenol No. 3 at home for pain. Patient will continue that. The patient will follow-up with Dr. Cruz in three to seven days, Dr. Hamlin in about a week. Activity as tolerated. Regular diet.
== END 2016-08-04 10:59 | disposition home or self-care (01) | DRG 418 ==
LOC: EC 19:22 → 6PED 23:23
PROVIDERS: ADMIT Internal Medicine; ATTEND Internal Medicine
PROC: 0FJD8ZZ Inspection of Pancreatic Duct, Via Natural or Artificial Opening Endoscopic (ICD-10-PCS; principal; 2016-08-02 07:30)
PROC: 0FJB8ZZ Inspection of Hepatobiliary Duct, Via Natural or Artificial Opening Endoscopic (ICD-10-PCS; principal; 2016-08-02 07:30)
PROC: 0FT44ZZ Resection of Gallbladder, Percutaneous Endoscopic Approach (ICD-10-PCS; 2016-08-03)
DX: K85.10 Biliary acute pancreatitis without necrosis or infection (principal); K80.65 Calculus of gallbladder and bile duct with chronic cholecystitis with obstruction; E11.9 Type 2 diabetes mellitus without complications; Z68.35 Body mass index [BMI] 35.0-35.9, adult; E66.9 Obesity, unspecified
CPT/HCPCS: 36415; 43260; 74020; 74328; 76705; 80053; 80074; 81001; 81025; 82150; 83605; 83690; 85025; 85610; 85730; 86850; 86900; 86901; 87040; 87086; 88304; 96361; 96365; 96375; 96376; 99285

== ENCOUNTER → 2023-08-16 | Outpatient (CLI) | payer OTHER ==
--- NOTE | 2023-08-19 16:24 | US ---
EXAMINATION TYPE: US OB Call Back DATE OF EXAM: 08/16/2023 COMPARISON: NONE CLINICAL INDICATION: Female, 33 years old with history of O36.62XO MATERNAL CARE FOR EXCESS JESUS WTH, SE; Call back for spine, 4ch and cord insert, obese patient GESTATIONAL AGE / DATING Dates by Initial Survey Scan: (21 weeks/2 days) EDC: 12/26/2023 HEART RATE: 161 bpm RHYTHM: Normal ANATOMY SEEN (second anatomic survey look): Four Chamber Heart: wnl Cord Insert : wnl Longitudinal Spine: wnl Transverse Spine: wnl MATERNAL WALL MEASUREMENT: 4.5 cm from skin to anterior uterine wall (if exam limited due to body jaimes bitus). IMPRESSION: Exam limitations due to maternal body habitus. Four-chamber heart, cord insertion, and longitudinal/t ransverse spine are visualized and appear normal.
== END | disposition home or self-care (01) ==
LOC: RADUSWWP 14:39
PROVIDERS: ATTEND Obstetrics & Gynecology
DX: Z53.9 Procedure and treatment not carried out, unspecified reason (principal)

== ENCOUNTER 2023-12-09 07:52 | Outpatient (CLI) | payer OTHER ==
[2023-12-09 09:01] VITALS: BP 126/82; PULSE 101; RESP 18; TEMP 97.1
--- NOTE | 2024-01-05 10:40 | P.MSEPDOC ---
Presenting Problems - Arrival Data Date of Arrival on Unit: 12/09/23 Time of Arrival on Unit: 07:52 Mode of Transport: Ambulatory - Complaint OB-Reason for Admission/Chief Complaint: Decreased Movement Medical History - Information : 3 Para: 2 Term: 2 : 0 Abortions: Spontaneous or Elective: 0 Number of Living Children: 2 - Gestational Age Gestational Age by REUBEN (wks/days): 37 Weeks and 4 Days - History Complications: GDM Review of Systems - Review of Systems Constitutional: No problems Breast: No problems ENT: No problems Cardiovascular: No problems Respiratory: No problems Gastrointestinal: No problems Genitourinary: No problems Musculoskeletal: No problems Neurological: No problems Skin: No problems Vital Signs - Temperature Temperature: 97.1 F Temperature Source: Temporal Artery Scan - Pulse Pulse Oximetery Pulse Rate: 101 Pulse Assessment Method: Pulse Oximetry - Respirations Respiratory Rate: 18 Oxygen Delivery Method: Room Air O2 Sat by Pulse Oximetry: 98 - Blood Pressure Right Arm Blood Pressure: 126/82 Blood Pressure Mean: 96 Blood Pressure Source: Automatic Cuff Medical Screen Scoring - Assessment - Baby A Baseline FHR: 130 Heart Rate - NICHD Category: Category I (Normal) Physician Notification - Physician Notified Physician Notified Date: 12/09/23 Physician Notified Time: 08:15 Physician: Marizol Davis New Order Received: Yes - Notification Comment Comment: Dr. Davis on unit, report given on maternal c/o no movment since 1900 last night and decreased movement all day yesterday. Pt is GDM - insulin controlled. Per Dr. Davis, accoustic stim was performed at her last NST in the office. 815 - Dr. Davis at the bedside, accoustic stim performed by Dr. Davis. Increase in heart rate noted with stim. Per MD, if NST is reactive in the next 20mins, pt can be discharged home with instructions on kick counts and f/u. Maternal Triage Index - Maternal Triage Index Presenting for scheduled procedure w/no complaint: No - Stat/Priority 1 Stat Priority 1: No - Urgent/Priority 2 Urgent Priority 2: Yes Provider Notified: Marizol Davis Provider Notified Time: 08:15 Criteria Met for Priority 2: 37 4/7wks, decreased movement Disposition - Disposition OB Disposition: Discharge to home Discharge Date: 12/09/23 Discharge Time: 08:53 I agree with the RN Medical Screening Exam: Yes Physician's MSE Comment: I have neither seen nor examined the patient. Case reviewed; plan agreed upon as documented in EMR&OBIX.: Yes Diagnosis: RELATED CONDITIONS, UNSPECIFIED, THIRD TRIMESTER
== END 2023-12-09 08:53 | disposition home or self-care (01) ==
LOC: FBPOP 07:52
PROVIDERS: ATTEND Obstetrics & Gynecology
DX: O36.8131 Decreased fetal movements, third trimester, fetus 1 (principal); O24.414 Gestational diabetes mellitus in pregnancy, insulin controlled; Z3A.37 37 weeks gestation of pregnancy
CPT/HCPCS: 59025; 99213

== ENCOUNTER 2023-12-27 06:06 | Inpatient (IN) | payer OTHER ==
[2023-12-27] MEDS ORDERED: TRANEXAMIC 1,000 MG/100ML-NACL 1,000 MG in EMPTY BAG 1 BAG IV PRN (06:20)
[2023-12-27] MEDS ORDERED: miSOPROStoL 200 MCG TAB RECTAL PRN (06:20)
[2023-12-27] MEDS ORDERED: CARBOPROST TROMETHAMINE 250 MCG/ML 1 ML AMP IM PRN (06:20)
[2023-12-27] MEDS ORDERED: OXYTOCIN 10 UNIT/ML 1 ML VIAL IM PRN (06:20)
[2023-12-27] MEDS ORDERED: TERBUTALINE 1 MG/ML VIAL SQ PRN (06:20)
[2023-12-27] MEDS ORDERED: METHYLERGONOVINE 0.2 MG/ML 1 ML AMP IM PRN (06:20)
[2023-12-27] MEDS ORDERED: miSOPROStoL 200 MCG TAB PO PRN (06:20)
[2023-12-27] MEDS ORDERED: LIDOCAINE 0.5% (PF) 5 MG/ML (50 ML SDV) SQ PRN (06:20)
[2023-12-27] MEDS ORDERED: OXYTOCIN 30 UNITS/500 ML NS 30 UNIT in SALINE 1 500ML.BAG IV SCH ×2 (06:30→08:45)
[2023-12-27] MEDS: LACTATED RINGERS 1,000 ML IV SCH (06:35)
[2023-12-27 06:40] LABS: Glucose,Whole Blood 98 mg/dL (70-110)
[2023-12-27 07:00] LABS: Basophils % (A) 1 %; Eosinophils # (A) 0.1 k/uL (0-0.7); Eosinophils % (A) 1 %; HCT 41.8 % (34.0-46.0); HGB 13.8 gm/dL (11.4-16.0); Lymphocytes # (A) 1.9 k/uL (1.0-4.8); Lymphocytes % (A) 24 %; MCH 27.8 pg (25.0-35.0); MCHC 32.9 g/dL (31.0-37.0); MCV 84.6 fL (80.0-100.0); Mean Platelet Volume 8.1; Monocytes # (A) 0.5 k/uL (0-1.0); Monocytes % (A) 6 %; Neutrophils # (A) 5.4 k/uL (1.3-7.7); Neutrophils % (A) 67 %; Platelet Count 349 k/uL (150-450); RBC 4.94 m/uL (3.80-5.40); RDW 14.5 % (11.5-15.5)
[2023-12-27] MEDS: CITRIC ACID-SODIUM CITRATE 15 ML CUP PO ONE (07:25)
[2023-12-27] MEDS ORDERED: OXYTOCIN 30 UNITS/500 ML NS BAG IV ONE (08:03)
[2023-12-27] MEDS ORDERED: MORPHINE SULFATE (PF) 0.3 MG/0.3 ML SYR ONE (08:03)
[2023-12-27] MEDS ORDERED: PHENYLEPHRINE-0.9% NACL SYG 1,000 MCG/10 ML SYRINGE ONE (08:03)
[2023-12-27] MEDS ORDERED: KETOROLAC 15 MG/ML 1 ML VIAL ONE (08:03)
[2023-12-27] MEDS ORDERED: ONDANSETRON 4 MG/2 ML VIAL IVP PRN (08:24)
[2023-12-27] MEDS ORDERED: NALBUPHINE 10 MG/ML (10 ML MDV) IV PRN (08:24)
[2023-12-27] MEDS ORDERED: diphenhydrAMINE 50 MG/ML 1 ML VIAL IVP PRN ×3 (08:24→08:45)
[2023-12-27] MEDS ORDERED: NALOXONE 0.4 MG/ML 1 ML VIAL IV PRN (08:24)
--- NOTE | 2023-12-27 08:43 | P.HPOB ---
History of Present Illness H&P Date: 12/27/23 Chief Complaint: repeat c/s 33-year-old presents at 40 weeks and 1 day for repeat low transverse C- section. She's been followed for gestational diabetes and on Lantus 23 units at bedtime. Sugars have been well-controlled. Review of Systems All systems: negative Constitutional: Denies chills, Denies fever Eyes: denies blurred vision, denies pain Ears, nose, mouth and throat: Denies headache, Denies sore throat Cardiovascular: Denies chest pain, Denies shortness of breath Respiratory: Denies cough Gastrointestinal: Denies abdominal pain, Denies diarrhea, Denies nausea, Denies vomiting Genitourinary: Denies dysuria, Denies hematuria Musculoskeletal: Denies myalgias Integumentary: Denies pruritus, Denies rash Neurological: Denies numbness, Denies weakness Psychiatric: Denies anxiety, Denies depression Endocrine: Denies fatigue, Denies weight change Past Medical History Past Medical History: Diabetes Mellitus, GERD/Reflux Additional Past Medical History / Comment(s): gestational diabetes- insulin controlled History of Any Multi-Drug Resistant Organisms: None Reported Past Surgical History: Section, Cholecystectomy Additional Past Surgical History / Comment(s): [place] tooth extraction, c- section on 06/14/16, had gestastional diabetes during Past Anesthesia/Blood Transfusion Reactions: No Reported Reaction Past Psychological History: No Psychological Hx Reported Smoking Status: Former smoker, Light tobacco smoker Past Alcohol Use History: None Reported Additional Past Alcohol Use History / Comment(s): quit smoking 9 months ago Past Drug Use History: None Reported - Past Family History Mother Family Medical History: Cancer, Diabetes Mellitus Medications and Allergies Home Medications Medication Instructions Recorded Confirmed Type Ergocalciferol [Vitamin D2 (1250 1,250 mcg PO Q30D 12/09/23 12/27/23 History Mcg = 96285 Iu)] Insulin Glargine [Lantus Vial] 23 unit SQ HS 12/09/23 12/27/23 History Vit No.179/Iron/Folic 1 each PO DAILY 12/09/23 12/27/23 History [ Tablet] Allergies Allergy/AdvReac Type Severity Reaction Status Date / Time No Known Allergies Allergy Verified 12/27/23 06:19 Exam Osteopathic Statement: *. No significant issues noted on an osteopathic structural exam other than those noted in the History and Physical/Consult. Vital Signs Temp Pulse Resp BP Pulse Ox 12/27/23 06:20 97.2 F L 98 16 112/70 97 Intake and Output 12/26/23 12/27/23 12/27/23 22:59 06:59 14:59 Other: Weight 113.398 kg Heart: Regular rate and rhythm Lungs: Clear to auscultation bilaterally Abdomen: Soft, nontender Extremities: Negative Homans sign Results Result Diagrams: 12/27/23 06:36 Assessment and Plan (1) Previous section Current Visit: Yes Status: Acute Code(s): Z98.891 - HISTORY OF UTERINE SCAR FROM PREVIOUS SURGERY SNOMED Code(s): 014674721 (2) Gestational diabetes mellitus, class A2 Current Visit: Yes Status: Acute Code(s): O24.419 - GESTATIONAL DIABETES MELLITUS IN , UNSP CONTROL SNOMED Code(s): 53335780 Plan: 1. repeat low transverse
[2023-12-27] MEDS ORDERED: diphenhydrAMINE 50 MG CAP PO PRN (08:45)
[2023-12-27] MEDS ORDERED: LANOLIN CREAM 1 GM TUBE TOPICAL PRN (08:45)
[2023-12-27] MEDS ORDERED: diphenhydrAMINE 25 MG CAP PO PRN (08:45)
[2023-12-27] MEDS ORDERED: ZOLPIDEM 5 MG TAB PO PRN (08:45)
[2023-12-27] MEDS ORDERED: SIMETHICONE 80 MG CHEWABLE PO PRN (08:45)
[2023-12-27] MEDS ORDERED: METOCLOPRAMIDE 5 MG/ML 2 ML VIAL IVP PRN (08:45)
--- NOTE | 2023-12-27 08:45 | P.OP ---
Date of Procedure: 12/27/23 Preoperative Diagnosis: 1. at 40 weeks 1 day 2. previous 3. gestational diabetes A2 Postoperative Diagnosis: 1. at 40 weeks 1 day 2. previous 3. gestational diabetes A2 4. oligohydramnios Procedure(s) Performed: repeat low transverse Anesthesia: spinal Surgeon: Marizol Davis [employer]1: Ernestina Villa Estimated Blood Loss (ml): 340 IV fluids (ml): 900 Urine output (ml): 300 Pathology: none sent Condition: stable Disposition: floor Operative Findings: viable male. 9,9, weight 5#15oz, no amniotic fluid noted. normal uterus tubes and ovaries Description of Procedure: Patient was taken to the operating room where spinal anesthesia was found be adequate. She was prepped and draped in normal sterile fashion in dorsal supine position with a leftward tilt. Pfannenstiel skin incision was made the scalpel and carried through to the underlying layer of fascia with the scalpel. Fascia was incised in midline and carried bilaterally with the Haq scissors. The superior aspect of the fascial incision was grasped with Eun clamps elevated and the underlying rectus muscles dissected off with the Haq's. Attention was then turned to inferior aspect of same incision which in a similar fashion was grasped tented up and the underlying rectus muscles dissected off with the Haq's. The rectus muscles were the midline and the peritoneum was identified tented up and entered sharply with the scalpel. The incision was extended superiorly and inferiorly with good visualization of the bladder. The bladder blade was inserted and the vesicouterine peritoneum was incised the Metzenbaums then carried bilaterally and bladder flap created digitally. A low transverse incision was then made on the uterus with the scalpel. This was carried bilaterally and digital manner. 's head delivered atraumatically, nose and mouth bulb suctioned, cord clamped and cut, handed off to waiting nurses. Apgars 9,9, weight 5 lbs. 15 oz. Placenta delivered manually, intact with three-vessel cord. The uterus is exteriorized and cleared of all clots and debris. The uterine incision was closed with 0 Vicryl in a running locked fashion. Second layer of the same sutures used in imbricating fashion to obtain excellent hemostasis. Both ovaries and tubes appeared normal. The uterus was placed back into the abdomen. The muscles were reapproximated using 2-0 Vicryl in interrupted fashion. The fascia was reapproximated using 0 Vicryl in a running fashion. The subcutaneous tissues closed with 3-0 Vicryl running fashion. The skin was closed lili. Patient tolerated the procedure well, sponge and instrument counts were correct times 2 and she was taken to the recovery room in stable condition.
[2023-12-27] MEDS: ACETAMINOPHEN TAB 500 MG TAB PO SCH (12:10)
[2023-12-27] MEDS: IBUPROFEN 600 MG TAB PO SCH (15:16)
[2023-12-27] MEDS: KETOROLAC 15 MG/ML 1 ML VIAL IVP SCH (17:24)
[2023-12-27 20:18] VITALS: RESP 16
[2023-12-27] MEDS: SENNOSIDES-DOCUSATE SODIUM 1 EACH TAB PO SCH (22:12)
--- NOTE | 2023-12-28 06:33 | P.PNOBGPC ---
Subjective - Subjective Principal diagnosis: Postop day 1, repeat section Interval history: Patient is doing well postoperatively. She is ambulating and voiding without difficulty. She is tolerating a regular diet without nausea or vomiting. She denies concerns. Patient reports: Reports appetite normal, Reports voiding normally, Reports pain well controlled, Reports ambulating normally [place]: doing well Objective - Vital Signs Latest vital signs: Vital Signs Temp Pulse Resp BP Pulse Ox 12/28/23 05:00 16 12/28/23 04:00 98.0 F 90 16 106/72 12/28/23 03:00 16 12/28/23 01:00 16 12/27/23 22:58 16 12/27/23 21:00 16 12/27/23 20:00 98.0 F 74 16 96/55 99 12/27/23 18:31 17 12/27/23 17:00 17 12/27/23 16:00 97.9 F 76 17 101/70 100 12/27/23 15:00 78 16 98 12/27/23 13:00 68 16 96 12/27/23 11:00 98.0 F 59 L 16 91/56 99 12/27/23 10:45 65 16 90/59 99 12/27/23 10:30 58 L 16 103/60 99 12/27/23 10:15 60 16 89/57 98 12/27/23 10:00 60 16 91/61 96 12/27/23 09:45 71 16 60/44 98 12/27/23 09:30 69 16 84/52 97 12/27/23 09:15 72 16 86/54 97 12/27/23 09:00 72 16 80/46 95 12/27/23 08:45 98.4 F 80 16 88/47 96 Intake and Output 12/27/23 12/27/23 12/28/23 14:59 22:59 06:59 Intake Total 900 Output Total 1065 1500 400 Balance -165 -1500 -400 Intake: IV 900 Output: Urine 600 1500 400 Output, Quantitative 465 Blood Loss Other: Voiding Method Indwelling Catheter - Exam Extremities: Present: normal, edema Abdomen: Present: normal appearance, soft Incision: Present: normal, dry, intact Uterus: Present: normal, firm Assessment and Plan (1) Term Current Visit: Yes Status: Acute Code(s): Z34.90 - ENCNTR FOR SUPRVSN OF NORMAL , UNSP, UNSP TRIMESTER SNOMED Code(s): 04115434 (2) History of section Current Visit: Yes Status: Acute Code(s): Z98.891 - HISTORY OF UTERINE SCAR FROM PREVIOUS SURGERY SNOMED Code(s): 366723977 (3) Status post section Current Visit: Yes Status: Acute Code(s): Z98.891 - HISTORY OF UTERINE SCAR FROM PREVIOUS SURGERY SNOMED Code(s): 958681856 Plan: Patient is doing well . Plan to continue routine care and anticipate discharge home tomorrow.
[2023-12-28 07:53] LABS: Basophils % (A) 0 %; Eosinophils # (A) 0.1 k/uL (0-0.7); Eosinophils % (A) 2 %; HCT 37.5 % (34.0-46.0); HGB 12.1 gm/dL (11.4-16.0); Lymphocytes # (A) 1.8 k/uL (1.0-4.8); Lymphocytes % (A) 20 %; MCH 27.8 pg (25.0-35.0); MCHC 32.2 g/dL (31.0-37.0); MCV 86.3 fL (80.0-100.0); Mean Platelet Volume 7.4; Monocytes # (A) 0.6 k/uL (0-1.0); Monocytes % (A) 6 %; Neutrophils # (A) 6.5 k/uL (1.3-7.7); Neutrophils % (A) 71 %; Platelet Count 302 k/uL (150-450); RBC 4.35 m/uL (3.80-5.40); RDW 14.5 % (11.5-15.5); WBC 9.2 k/uL (3.8-10.6)
--- NOTE | 2023-12-28 10:10 | P.PN ---
Progress Note - Text Adequate analgesia. No complication from intrathecal Duramorph.
[2023-12-29 08:40] VITALS: BP 112/76; PULSE 99; TEMP 98.3
--- NOTE | 2023-12-29 10:37 | P.DS ---
Providers Date of admission: 12/27/23 06:06 Expected date of discharge: 12/29/23 Attending physician: Marizol Davis Primary care physician: Stated None - Discharge Diagnosis(es) (1) Term Current Visit: Yes Status: Acute (2) History of section Current Visit: Yes Status: Acute (3) Status post section Current Visit: Yes Status: Acute Hospital Course: This is a 33-year-old 3 now para 3-0-0-3 that presented to labor and delivery on 72 for scheduled repeat section. Patient had been receiving routine care which was complicated by diagnosis of gestational diabetes. For full details in this patient please see the dictated history and physical. Patient was taken back to the operating suite where repeat section was completed without difficulty. For full details on the please see the operative report. Patient delivered a viable female at 820, weight of 5 pounds 15 ounces, Apgars of 9 and 9 at 1 and 5 minutes respectively. Patient's course has been uneventful. On this postoperative day #2 she is ambulating and voiding without difficulty. States her pain is well-controlled. She denies concerns. She would like d ischarge home. Patient Condition at Discharge: Good Plan - Discharge Summary Discharge Rx Participant: No New Discharge Prescriptions: No Action Ergocalciferol [Vitamin D2 (1250 Mcg = 15523 Iu)] 1,250 mcg PO Q30D Insulin Glargine [Lantus Vial] 23 unit SQ HS Vit No.179/Iron/Folic [ Tablet] 1 each PO DAILY Discharge Medication List Ergocalciferol [Vitamin D2 (1250 Mcg = 24505 Iu)] 1,250 mcg PO Q30D 12/09/23 [History] Insulin Glargine [Lantus Vial] 23 unit SQ HS 12/09/23 [History] Vit No.179/Iron/Folic [ Tablet] 1 each PO DAILY 12/09/23 [History] Follow up Appointment(s)/Referral(s): Marizol Davis DO [Doctor of Osteopathic Medicine] - 01/10/24 10:30 am (Post Appointment 02-07-2024 at 10:30am) Patient Instructions/Handouts: (DC), (GEN) Activity/Diet/Wound Care/Special Instructions: No intercourse, or tub baths. No heavy lifting greater than a gallon of milk. No driving for two weeks. Call with any fever, shakes or chills, with any pain not alleviated by over the counter meds, or with any questions or concerns. [id number] ibuprofen 600 mg or 3 tablets every 6 hours as needed for pain. Discharge Disposition: HOME SELF-CARE
== END 2023-12-29 13:22 | disposition home or self-care (01) | DRG 787 ==
LOC: 4FBP 06:06
PROVIDERS: ADMIT Obstetrics & Gynecology; ATTEND Obstetrics & Gynecology
PROC: 10D00Z1 Extraction of Products of Conception, Low, Open Approach (ICD-10-PCS; principal; 2023-12-27 08:00)
DX: O34.211 Maternal care for low transverse scar from previous cesarean delivery (principal); O41.03X0 Oligohydramnios, third trimester, not applicable or unspecified; O48.0 Post-term pregnancy; O24.424 Gestational diabetes mellitus in childbirth, insulin controlled; Z37.0 Single live birth; Z3A.40 40 weeks gestation of pregnancy; Z87.891 Personal history of nicotine dependence; Z79.4 Long term (current) use of insulin
CPT/HCPCS: 85025; 86850; 86900; 86901